=== PATIENT | female | born 1955 | race Caucasian/White ===

== ENCOUNTER 2020-08-01 17:30 | Outpatient (REF) | payer OTHER, SELFPAY | END 2020-08-01 17:31 | disposition home or self-care (01) | LOC: HO.LNP 17:30 | PROVIDERS: Visit Provider Hospitalist | DX: Z20.828 Contact with and (suspected) exposure to other viral communicable diseases (principal) | CPT/HCPCS: 87635 ==

== ENCOUNTER 2020-08-02 11:21 | Outpatient (REF) | payer OTHER, SELFPAY ==
[2020-08-02 11:49] LABS: COVID-19 Test Negative (Negative)
== END 2020-08-02 11:22 | disposition home or self-care (01) ==
LOC: HO.LAB 11:21
PROVIDERS: PCP Internal Medicine; Visit Provider Internal Medicine
DX: Z20.828 Contact with and (suspected) exposure to other viral communicable diseases (principal)
CPT/HCPCS: 87635

== ENCOUNTER 2020-08-31 09:02 | Inpatient (IN) | payer OTHER, SELFPAY ==
[2020-08-31 09:23] VITALS: BP 138/74; PULSE 91; RESP 16; TEMP 36.6; O2SAT 99; BMI 23.8
--- NOTE | 2020-08-31 09:28 | ED_ITS ---
HPI - General Adult General Chief complaint: General Medical Stated complaint: abnormal labs Time Seen by Provider: 08/31/20 09:20 Source: patient Mode of arrival: ambulatory Limitations: no limitations History of Present Illness HPI narrative: 65 y/o female with history of HTN, HLD, anxiety, depression who presents with abnormal BUN and creatinine that was done on outpatient blood work 2 days ago. She was instructed to stop taking her HCTZ and to come the ED. She has had intermittent nausea, vomiting and diarrhea over the last 2-3 weeks. She also saw her PCP on 08/01 with N/V/D and fatigue and she was tested for COVID which was negative. No sick contacts, no fever, chills, back pain, urinary symptoms, abd pain. She was eating and drinking normally the last 2 days but the 2 days prior to that she had another bout of nausea and diarrhea. Related Data Home Medications Medication Instructions Recorded Confirmed alprazolam 0.5 mg tablet 0.5 mg PO TID PRN 08/01/20 atorvastatin 80 mg tablet mg PO 08/01/20 bupropion HCl 150 mg 24 hr tablet, 150 mg PO DAILY 08/01/20 extended release estradiol 10 mcg vaginal tablet 10 mcg VAGINAL 2XW 08/01/20 flu vacc [id number] 6mos up(PF) ml IM 08/01/20 hydrochlorothiazide 12.5 mg tablet 12.5 mg PO DAILY 08/01/20 ibuprofen 800 mg tablet 800 mg PO TID 08/01/20 losartan 100 mg tablet 100 mg PO DAILY 08/01/20 metoprolol succinate 100 mg 100 mg PO DAILY 08/01/20 tablet,extended release 24 hr omeprazole 20 mg capsule,delayed mg PO 08/01/20 release sertraline 50 mg tablet 50 mg PO DAILY 08/01/20 Previous Rx's Medication Instructions Recorded ondansetron HCl [Zofran] 4 mg PO Q8H PRN #12 tab 08/31/20 Allergies Allergy/AdvReac Type Severity Reaction Status Date / Time acetaminophen [From PERCOCET] Allergy Intermediate ITCHING Verified 08/31/20 09:22 oxycodone [Percocet] Allergy Unknown itching, Verified 08/31/20 09:22 N/V From PERCOCET Allergy Intermediate ITCHING Uncoded 08/31/20 09:22 Review of Systems Review of Systems: Constitutional: No Fever, No Chills ENT/Mouth: No sore throat, No Rhinorrhea, No Swallowing Difficulty Eyes: No Eye Pain, No Swelling, No Redness Cardiovascular: No Chest Pain, No SOB, No Orthopnea, No Edema Respiratory: No Cough, No Sputum, No Wheezing, No dyspnea Gastrointestinal: + Nausea, + Vomiting, + Diarrhea, No abdominal Pain, No Hematochezia, No Melena Genitourinary: No Dysuria, No Urinary Frequency, No Hematuria Musculoskeletal: No joint pain, No Myalgias Skin: No Skin Lesions, No rash Neuro: No Weakness, No Numbness, No Dizziness, No Headache Psych: No Anxiety/Panic, No Depression Heme/Lymph: No Bruising, No Lymphadenopathy Endocrine: No Polyuria, No Polydipsia PMFSH Past Medical History Attestation statement: The following information was validated with the patient. Medical History (Updated 08/31/20 @ 09:57 by ALTAF Dorman) Anxiety High cholesterol HTN (hypertension) Migraine Social History Social History Advance Directives: No Advance Directives Information Provided: No Physical Exam Vital Signs: Vital Signs: Last Vital Signs Temp 98 F 08/31/20 09:23 Pulse 91 08/31/20 09:23 Resp 16 08/31/20 09:23 BP 138/74 08/31/20 09:23 Pulse Ox 99 08/31/20 09:23 Body Mass Index 23.8 Appearance: Alert. Oriented X3. No acute distress. Eyes: Pupils equal, round and reactive to light. ENT: Pharynx normal. Neck: Normal inspection. Neck supple. CVS: Normal heart rate and rhythm. Pulses normal. Respiratory: No respiratory distress. Breath sounds normal. Abdomen: Soft and nontender. +BS x4 Skin: Skin warm and dry. Normal skin color. Normal skin turgor. No rashes. Extremities: No lower extremity edema. Neuro: Oriented X 3. No motor deficit. No sensory deficit. Course Course Course Narrative: 65 you female presenting with ARYA found on outpatient blood work. BUN/Cr from 2 days ago were 37/3.2 with potassium 3.9. Baseline SCr 1.1 from earlier this year. ARYA etiology likely pre-renal given recent diarrhea, vomiting and decreased PO intake. Repeat labs and urine electrolytes ordered as well as IVF. She is currently feeling well and at her baseline health. Reevaluation(s) Reevaluation #1: Labs showing worsening renal function with SCr 5.28. Potassium normal. Also showing worsening anemia from her baseline. ?anemia of chronic disease. Her baseline Bun/Cr was from earlier this year. She states her urination has been normal, which is not frequent at her baseline. We spoke about admission for monitoring, IVF and evaluation by a Senior Professional Services Consultant. She agrees with. Contacted Hospitalist who accepts. Medical Decision Making MDM Narrative Medical decision making narrative: ARYA likely pre-renal given symptoms. cannot rule out intrinsic or extrensic causes. needs admission for further evaluation. urine lytes ordered. will need renal U/S to r/o obstruction as well. Lab Data Result diagrams: 08/31/20 09:36 08/31/20 09:36 Labs: Lab Results 08/31/20 08/31/20 08/31/20 Range/Units 09:36 09:36 09:36 WBC 7.9 (4.8-10.8) X10*3/uL RBC 2.78 L (4.20-5.50) X10*6/uL Hgb 9.2 L (12.0-16.0) g/dl Hct 28.3 L (37-47) % MCV 101.8 H (80-98) fL MCH 33.1 H (27.0-33.0) pg MCHC 32.5 (31.0-35.0) g/dl RDW 13.0 (11.0-16.0) % Plt Count 286 (160-400) X10*3/uL MPV 9.1 L (9.4-12.3) fL Immature Gran % (Auto) 0.4 (0.0-0.4) % Neut % (Auto) 75.5 H (45-73) % Lymph % (Auto) 13.9 L (20-40) % [place] % (Auto) 8.3 (2-11) % Eos % (Auto) 1.4 (0-4) % Baso % (Auto) 0.5 (0-2) % Lymph # (Auto) 1.1 L (1.2-4.9) X10*3/uL [place] # (Auto) 0.7 (0.1-1.2) X10*3/uL Eos # (Auto) 0.1 (0.0-0.4) X10*3/uL Baso # (Auto) 0.0 (0.0-0.2) X10*3/uL Abs Immat Gran (auto) 0.03 (0.00-0.03) X10*3/uL Absolute Neuts (auto) 6.0 (2.0-8.3) X10*3/uL Absolute Nucleated RBC 0.000 (0.0-0.012) X10*3/uL Nucleated RBC % (auto) 0.0 (0.0-0.2) /100WBC Sodium 129 L (135-145) mmol/L Potassium 3.7 (3.3-5.1) mmol/l Chloride 95 L (96-108) mmol/L Carbon Dioxide 20 L (22-29) mmol/L Anion Gap 18 (12-20) BUN 43 H (9-16) mg/dL Creatinine 5.28 H* (0.5-1.4) mg/dL Estim Creat Clear Calc 8.6 Estimated GFR 8 Random Glucose 96 (60-115) mg/dL Calcium 8.4 (8.4-10.2) mg/dL Phosphorus 5.7 H (2.7-4.5) mg/dL Magnesium 1.7 (1.6-2.6) mg/dL Total Bilirubin 0.4 (0.0-1.0) mg/dL Direct Bilirubin 0.2 (0.0-0.5) mg/dL AST 26 (5-31) U/L ALT 16 (0-31) U/L Alkaline Phosphatase 114 (39-117) U/L Total Protein 7.1 (6.5-8.0) g/dL Albumin 4.3 (3.5-5.0) g/dL Urine Color Urine Appearance Urine pH (5.0-8.0) Ur Specific [place] (1.005-1.025) Urine Protein (NEG-TRACE) MG/DL Urine Glucose (UA) (NEG) MG/DL Urine Ketones (NEG) MG/DL Urine Blood (NEG) Urine Nitrite (NEG) Ur Leukocyte Esterase (NEG) Urine RBC (0) /HPF Urine WBC (0-4) /HPF Ur Squamous Epith Cells /LPF Amorphous Sediment /LPF Urine Bacteria /LPF Granular Casts /LPF Ur Random Sodium mmol/L Urine Creatinine mg/dL 08/31/20 08/31/20 Range/Units 09:36 09:45 WBC (4.8-10.8) X10*3/uL RBC (4.20-5.50) X10*6/uL Hgb (12.0-16.0) g/dl Hct (37-47) % MCV (80-98) fL MCH (27.0-33.0) pg MCHC (31.0-35.0) g/dl RDW (11.0-16.0) % Plt Count (160-400) X10*3/uL MPV (9.4-12.3) fL Immature Gran % (Auto) (0.0-0.4) % Neut % (Auto) (45-73) % Lymph % (Auto) (20-40) % [place] % (Auto) (2-11) % Eos % (Auto) (0-4) % Baso % (Auto) (0-2) % Lymph # (Auto) (1.2-4.9) X10*3/uL [place] # (Auto) (0.1-1.2) X10*3/uL Eos # (Auto) (0.0-0.4) X10*3/uL Baso # (Auto) (0.0-0.2) X10*3/uL Abs Immat Gran (auto) (0.00-0.03) X10*3/uL Absolute Neuts (auto) (2.0-8.3) X10*3/uL Absolute Nucleated RBC (0.0-0.012) X10*3/uL Nucleated RBC % (auto) (0.0-0.2) /100WBC Sodium (135-145) mmol/L Potassium (3.3-5.1) mmol/l Chloride (96-108) mmol/L Carbon Dioxide (22-29) mmol/L Anion Gap (12-20) BUN (9-16) mg/dL Creatinine (0.5-1.4) mg/dL Estim Creat Clear Calc Estimated GFR Random Glucose (60-115) mg/dL Calcium (8.4-10.2) mg/dL Phosphorus (2.7-4.5) mg/dL Magnesium (1.6-2.6) mg/dL Total Bilirubin (0.0-1.0) mg/dL Direct Bilirubin (0.0-0.5) mg/dL AST (5-31) U/L ALT (0-31) U/L Alkaline Phosphatase (39-117) U/L Total Protein (6.5-8.0) g/dL Albumin (3.5-5.0) g/dL Urine Color STRAW Urine Appearance HAZY Urine pH 5.5 (5.0-8.0) Ur Specific [place] 1.010 (1.005-1.025) Urine Protein 1+ H (NEG-TRACE) MG/DL Urine Glucose (UA) NEG (NEG) MG/DL Urine Ketones NEG (NEG) MG/DL Urine Blood 2+ H (NEG) Urine Nitrite NEG (NEG) Ur Leukocyte Esterase NEG (NEG) Urine RBC 5-9 H (0) /HPF Urine WBC 1-4 (0-4) /HPF Ur Squamous Epith Cells 2+ /LPF Amorphous Sediment 3+ /LPF Urine Bacteria 1+ /LPF Granular Casts 5-9 /LPF Ur Random Sodium 21.0 mmol/L Urine Creatinine 41.19 mg/dL Discharge Plan Discharge Clinical Impression: ARYA (acute kidney injury), Acute dehydration Patient Disposition: Admitted As Inpatient
[2020-08-31 09:50] LABS: MANUAL DIFF FLAG NO
[2020-08-31 09:53] LABS: Glucose Urine UA NEG (NEG); Leukocyte Esterase Urine NEG (NEG); Nitrite Urine NEG (NEG); PH 5.5 (5.0-8.0); Urine Blood 2+ (NEG); Urine Ketones NEG (NEG); Urine Protein 1+ MG/DL (NEG-TRACE)
[2020-08-31 09:54] LABS: Appearance Urine HAZY; Color Urine STRAW
[2020-08-31 09:56] LABS: Basophils Percent Auto 0.5 % (0-2); Eosinophils Absolute Auto 0.1 X10*3/uL (0.0-0.4); Eosinophils Percent Auto 1.4 % (0-4); Hematocrit 28.3 % (37-47); Hemoglobin 9.2 g/dl (12.0-16.0); Imm Gran Abs Auto 0.03 X10*3/uL (0.00-0.03); Imm Gran Pct Auto 0.4 % (0.0-0.4); Lymphocytes Absolute Auto 1.1 X10*3/uL (1.2-4.9); Lymphocytes Percent Auto 13.9 % (20-40); Mean Corpuscular HGB Conc 32.5 g/dl (31.0-35.0); Mean Corpuscular Hemoglobin 33.1 pg (27.0-33.0); Mean Corpuscular Volume 101.8 fL (80-98); Mean Platelet Volume 9.1 fL (9.4-12.3); Monocytes Absolute Auto 0.7 X10*3/uL (0.1-1.2); Monocytes Percent Auto 8.3 % (2-11); Neutrophils Percent Auto 75.5 % (45-73); Platelet Count 286 X10*3/uL (160-400); Red Blood Count 2.78 X10*6/uL (4.20-5.50); White Blood Count 7.9 X10*3/uL (4.8-10.8)
[2020-08-31 10:01] LABS: Bacteria Urine 1+ /LPF; Squamous Epithelial Cell Urine 2+ /LPF
[2020-08-31 10:02] LABS: Amorphous Sediment Urine 3+ /LPF
[2020-08-31 10:19] LABS: Magnesium 1.7 mg/dL (1.6-2.6)
[2020-08-31 10:27] LABS: Alanine Aminotransferase 16 U/L (0-31); Albumin Level 4.3 g/dL (3.5-5.0); Alkaline Phosphatase 114 U/L (39-117); Anion Gap 18 (12-20); Aspartate Amino Transferase 26 U/L (5-31); Bilirubin Direct 0.2 mg/dL (0.0-0.5); Bilirubin Total 0.4 mg/dL (0.0-1.0); Blood Urea Nitrogen 43 mg/dL (9-16); Calcium 8.4 mg/dL (8.4-10.2); Carbon Dioxide 20 mmol/L (22-29); Chloride 95 mmol/L (96-108); Creatinine Clr Calc Pharmacy 8.6; Estimated Glomerular Filt Rate 8; Glucose Random 96 mg/dL (60-115); Phosphorus 5.7 mg/dL (2.7-4.5); Potassium 3.7 mmol/l (3.3-5.1); Sodium 129 mmol/L (135-145); Total Protein 7.1 g/dL (6.5-8.0)
[2020-08-31 10:55] LABS: Creatinine Urine 41.19 mg/dL
[2020-08-31] MEDS: 0.9 % Sodium Chloride 1,000 ML 999 ML IVCONT (11:13)
[2020-08-31 11:14] VITALS: BP 121/77; PULSE 93; O2SAT 98
[2020-08-31 12:02] LABS: COVID-19 Test Negative (Negative)
--- NOTE | 2020-08-31 14:28 | P.HPHOSP_ITS ---
History of Present Illness Date of Service: 08/31/20 Chief Complaint: Abnormal blood work A 65 years old lady with PMH of HTN, HLD, anxiety and depression who presents to the hospital as a referral from PCP office for abnormal blood work. The patient reports episodes of nausea and vomiting couple weeks ago that she did not recover completely from them as she was not eating very well or drinking plenty of water for the feeling of nausea that she had all the time. This feeling was associated with increase weakness and feeling fatigue. She went to see her primary on Saturday who did blood work and called her earlier today to come back to the hospital for acute kidney injury with creatinine worsening from baseline of 1 to 3 on Saturday. The patient kidney ultrasound done at [facility] yesterday negative for any acute obstruction or hydronephrosis. Repeated blood work in the emergency showed creatinine of 5.2. Admitted for further evaluation and treatment. [facility] Medical History (Updated 08/31/20 @ 09:57 by ALTAF Dorman) Anxiety High cholesterol HTN (hypertension) Migraine Social History Advance Directives: No Advance Directives Information Provided: No Meds Allergies Allergy/AdvReac Type Severity Reaction Status Date / Time acetaminophen [From PERCOCET] Allergy Intermediate ITCHING Verified 08/31/20 09:22 oxycodone [Percocet] Allergy Unknown itching, Verified 08/31/20 09:22 N/V From PERCOCET Allergy Intermediate ITCHING Uncoded 08/31/20 09:22 Home Medications Medication Instructions Recorded Confirmed Type alprazolam 0.5 mg tablet 0.5 mg PO TID PRN 08/01/20 08/31/20 History bupropion HCl 150 mg 24 hr tablet, 150 mg PO DAILY 08/01/20 08/31/20 History extended release estradiol 10 mcg vaginal tablet 10 mcg VAGINAL 2XW 08/01/20 08/31/20 History metoprolol succinate 100 mg 100 mg PO DAILY 08/01/20 08/31/20 History tablet,extended release 24 hr omeprazole 20 mg capsule,delayed 20 mg PO DAILY 08/01/20 08/31/20 History release butorphanol 1 spray INTRANASAL Q4H PRN 08/31/20 08/31/20 History rosuvastatin 40 mg PO DAILY 08/31/20 08/31/20 History Physical Exam Vital Signs and Narrative: Vital Signs: Last Vital Signs Temp 98 F 08/31/20 09:23 Pulse 93 08/31/20 11:14 Resp 16 08/31/20 09:23 BP 121/77 08/31/20 11:14 Pulse Ox 98 08/31/20 11:14 Body Mass Index 23.8 Results Labs CBC and Chem 7: 08/31/20 09:36 08/31/20 09:36 Labs: Laboratory Results - last 24 hr 08/31/20 08/31/20 08/31/20 09:36 09:36 09:36 MCV 101.8 H MCH 33.1 H MCHC 32.5 RDW 13.0 Plt Count 286 MPV 9.1 L Immature Gran % (Auto) 0.4 Neut % (Auto) 75.5 H Lymph % (Auto) 13.9 L [place] % (Auto) 8.3 Eos % (Auto) 1.4 Baso % (Auto) 0.5 Lymph # (Auto) 1.1 L [place] # (Auto) 0.7 Eos # (Auto) 0.1 Baso # (Auto) 0.0 Abs Immat Gran (auto) 0.03 Absolute Neuts (auto) 6.0 Absolute Nucleated RBC 0.000 Nucleated RBC % (auto) 0.0 Anion Gap 18 Estim Creat Clear Calc 8.6 Estimated GFR 8 Random Glucose 96 Calcium 8.4 Phosphorus 5.7 H Magnesium 1.7 Total Bilirubin 0.4 Direct Bilirubin 0.2 AST 26 ALT 16 Alkaline Phosphatase 114 Total Protein 7.1 Albumin 4.3 Urine Color Urine Appearance Urine pH Ur Specific [place] Urine Protein Urine Glucose (UA) Urine Ketones Urine Blood Urine Nitrite Ur Leukocyte Esterase Urine RBC Urine WBC Ur Squamous Epith Cells Amorphous Sediment Urine Bacteria Granular Casts Ur Random Sodium Urine Creatinine COVID-19 ([facility]IDIA) COVID-19 Clin Com 08/31/20 08/31/20 08/31/20 09:36 09:45 11:30 MCV MCH MCHC RDW Plt Count MPV Immature Gran % (Auto) Neut % (Auto) Lymph % (Auto) [place] % (Auto) Eos % (Auto) Baso % (Auto) Lymph # (Auto) [place] # (Auto) Eos # (Auto) Baso # (Auto) Abs Immat Gran (auto) Absolute Neuts (auto) Absolute Nucleated RBC Nucleated RBC % (auto) Anion Gap Estim Creat Clear Calc Estimated GFR Random Glucose Calcium Phosphorus Magnesium Total Bilirubin Direct Bilirubin AST ALT Alkaline Phosphatase Total Protein Albumin Urine Color STRAW Urine Appearance HAZY Urine pH 5.5 Ur Specific [place] 1.010 Urine Protein 1+ H Urine Glucose (UA) NEG Urine Ketones NEG Urine Blood 2+ H Urine Nitrite NEG Ur Leukocyte Esterase NEG Urine RBC 5-9 H Urine WBC 1-4 Ur Squamous Epith Cells 2+ Amorphous Sediment 3+ Urine Bacteria 1+ Granular Casts 5-9 Ur Random Sodium 21.0 Urine Creatinine 41.19 COVID-19 (ELIDIA) Negative COVID-19 Clin Com See Note Assessment and Plan (1) ARYA (acute kidney injury): Status: Acute (2) Acute dehydration: Status: Acute A 65 years old lady with PMH of HTN, HLD, anxiety and depression who presents to the hospital as a referral from PCP office for abnormal blood work. Acute kidney injury Seems to be related to dehydration status, decreased p.o. intake and medication usage Creatinine from baseline of 1 increased to 5.2 today BUN in 40s, suggestive of tubular injury Likely Patient on losartan, HCT, ibuprofen as needed Kidney ultrasound done in [facility] yesterday negative for any acute obstruction or hydronephrosis Hold nephrotoxic medications Send urine electrolytes Start gentle hydration Monitor intake and output To get Nephrology evaluation Acute Dehydration Secondary to nausea and vomiting Hydrate with IV fluid To use nausea medication as needed New Anemia Seems to be macrocytic with MCV of 101 To check iron stores, folic acid and thiamine To check occult blood No active source of bleeding identified but patient reports history of Esquivel's esophagus Hyponatremia sodium of 129, from dehydration To give IV fluid replacement Monitor BMP HTN Hold losartan, HCT continue metoprolol GERD Continue omeprazole DVT PPX Heparin
[2020-08-31] MEDS: 0.9 % Sodium Chloride 1,000 ML 100 ML IVCONT (14:42)
[2020-08-31 15:24] VITALS: BP 124/72; PULSE 100; RESP 18; TEMP 36.6; O2SAT 97
[2020-08-31] MEDS: Heparin Sodium,Porcine 5,000 UNIT/ML VIAL 5000 UNIT SUBCUT (16:50)
[2020-08-31 18:45] LABS: Anion Gap 19 (12-20); Blood Urea Nitrogen 42 mg/dL (9-16); Calcium 7.4 mg/dL (8.4-10.2); Carbon Dioxide 16 mmol/L (22-29); Chloride 101 mmol/L (96-108); Creatinine Clr Calc Pharmacy 8.3; Estimated Glomerular Filt Rate 8; Glucose Random 105 mg/dL (60-115); Potassium 3.7 mmol/l (3.3-5.1); Sodium 132 mmol/L (135-145)
[2020-08-31 19:26] VITALS: BP 116/73; PULSE 94; RESP 18; TEMP 36.3; O2SAT 97
--- NOTE | 2020-08-31 19:35 | P.CONNP_ITS ---
History of Present Illness Reason for Consult Consult date: 08/31/20 Reason for consult: ARYA Chief Complaint Chief complaint: acute kidney injury History of Present Illness Narrative: 65 y/o wF USOH until 1 wk ago when devloped GI sympotms w N/V and diahrea and decr PO intake. Seen by PCPand noted ARYA and had U/S at [facility] last night per PT whichwas negative for abnl. Admits to taking alleve for a few days last weak d/t muscle aches in neck area..better now. Noted decr UOP x2-3 days. BPmeds include cozaar and HCTZ ..stopped today No fever/chills No rash or myalgias No GH/dysuria No H/o kdiney probs No FHx of kidney probs PMH Anxiety High cholesterol HTN (hypertension) Migraine [facility] Past Medical History Medical History (Updated 08/31/20 @ 09:57 by ALTAF Dorman) Anxiety High cholesterol HTN (hypertension) Migraine Social History Social History Household Members: None Housing: House Do you presently have visiting nurse or other home services: No Use of substances other than those prescribed or required for medical reasons: No Have you been hit, kicked, punched, or otherwise hurt by someone within the past year? If so, by whom?: No Do you feel safe in your current relationship?: No Is there a partner from a previous relationship who is making you feel unsafe now?: No Are you made to feel afraid or neglected: No Advance Directives: No Advance Directives Information Provided: No Meds Allergies Allergy/AdvReac Type Severity Reaction Status Date / Time acetaminophen [From PERCOCET] Allergy Intermediate ITCHING Verified 08/31/20 09:22 oxycodone [Percocet] Allergy Unknown itching, Verified 08/31/20 09:22 N/V From PERCOCET Allergy Intermediate ITCHING Uncoded 08/31/20 09:22 Home Medications Medication Instructions Recorded Confirmed Type alprazolam 0.5 mg tablet 0.5 mg PO TID PRN 08/01/20 08/31/20 History bupropion HCl 150 mg 24 hr tablet, 150 mg PO DAILY 08/01/20 08/31/20 History extended release estradiol 10 mcg vaginal tablet 10 mcg VAGINAL 2XW 08/01/20 08/31/20 History metoprolol succinate 100 mg 100 mg PO DAILY 08/01/20 08/31/20 History tablet,extended release 24 hr omeprazole 20 mg capsule,delayed 20 mg PO DAILY 08/01/20 08/31/20 History release butorphanol 1 spray INTRANASAL Q4H PRN 08/31/20 08/31/20 History rosuvastatin 40 mg PO DAILY 08/31/20 08/31/20 History Physical Exam Vital Signs: Last Vital Signs Temp 97.4 F 08/31/20 19:26 Pulse 94 08/31/20 19:26 Resp 18 08/31/20 19:26 BP 116/73 08/31/20 19:26 Pulse Ox 97 08/31/20 19:26 Body Mass Index 23.8 Results Lab Results Result Diagrams: 08/31/20 09:36 08/31/20 17:50 Lab results: Chemistry 08/31/20 08/31/20 09:36 17:50 Sodium 129 L 132 L Potassium 3.7 3.7 Carbon Dioxide 20 L 16 L BUN 43 H 42 H Creatinine 5.28 H* 5.43 H* Calcium 8.4 7.4 L D Phosphorus 5.7 H Hematology 08/31/20 09:36 WBC 7.9 Hgb 9.2 L Plt Count 286 Urinalysis 08/31/20 09:36 Urine Color STRAW Urine Appearance HAZY Urine pH 5.5 Ur Specific [place] 1.010 Urine Protein 1+ H Urine Glucose (UA) NEG Urine Ketones NEG Urine Blood 2+ H Urine Nitrite NEG Ur Leukocyte Esterase NEG Urine RBC 5-9 H Urine WBC 1-4 Ur Squamous Epith Cells 2+ Urine Studies 08/31/20 09:45 Urine Creatinine 41.19 Laboratory Tests 09/28/19 08/31/20 08/31/20 10:51 09:36 17:50 Creatinine 0.99 5.28 H* 5.43 H* Assessment and Plan (1) ARYA (acute kidney injury): Status: Acute (2) Acute dehydration: Status: Acute 1. ARYA: hsitory suggestive of pre-renal/dehydarion BUT lack of high BUn/Cr ratio, abnl UA ( prt and bld) and FEN a > 1% raises some question as does lack of decr SCr after IVF......note that .ARB and NSAID may interfere with auto- regualtion and play a contributing role in renal hypoperfsuion and delay response to IVF Nonetheless need to broaden our DDx AGN/RPGN AIN ( NSAIDS and PPI have been assoc) ATN without obvious precipitant Dysproteinemia: eg Myeloma and thus will proceed with sero studies and if SCr does not respond to IVF may need kidney Bx 2. Ques CKD component...last Scr 0.99 from [facility]...[facility] over past 1o months ? 3. Anemia: w/u in progress 4. NAGMA: d/t diarrhea and ARYA 5. HypoNa: d/t AKIand inability to handle F[place] REC: agree with IVf and proceed with sero/urine studies and depending on results may need kidney Bx; am heparin on hold as well as NPO after midnight incase need to proceed with kidney Bx will follow daryl with med team
[2020-08-31] MEDS: 0.9 % Sodium Chloride Flush 3 ML SYRINGE IVFLUSH (20:35)
[2020-08-31 20:42] LABS: Phosphorus 5.1 mg/dL (2.7-4.5)
[2020-08-31 20:45] LABS: Iron 34 mcg/dL (30-160); Percent Iron Saturation 14 % (15-50); Total Iron Binding Capacity 241 mcg/dL (228-428); Unsaturated Iron Binding 207 ug/dL
[2020-08-31 23:48] VITALS: BP 143/88; PULSE 92; RESP 16; TEMP 35.9; O2SAT 99
[2020-09-01] VITALS (8 sets, daily range): BP systolic 111–147; BP diastolic 67–89; PULSE 82–95; RESP 16–18; TEMP 36.1–36.7; O2SAT 96–99
[2020-09-01] MEDS: 0.9 % Sodium Chloride 1,000 ML 100 ML IVCONT ×3 (01:44→15:31)
[2020-09-01 02:26] LABS: Creatinine Urine 29.49 mg/dL; Total Protein Urine Random 21 mg/dL (<12)
--- NOTE | 2020-09-01 06:18 | PC.NURSE ---
Md called for pt updated. Md was worried that pt was retaining urine. Md asked for bladder scan. Scan showed only 151 ml in bladder. No straight cath was needed
[2020-09-01 06:59] LABS: MANUAL DIFF FLAG NO
[2020-09-01 07:11] LABS: INTERNATIONAL NORM RATIO 0.9 (0.9-1.1); Prothrombin Time 10.6 SEC (10.8-13.0)
[2020-09-01] MEDS: Omeprazole 20 MG CAPSULE.DR PO (07:28)
[2020-09-01] MEDS: buPROPion HCl XL 150 MG TAB.ER.24H PO (07:28)
[2020-09-01] MEDS: 0.9 % Sodium Chloride Flush 3 ML SYRINGE IVFLUSH (07:28)
[2020-09-01 07:33] LABS: Basophils Percent Auto 0.5 % (0-2); Eosinophils Absolute Auto 0.1 X10*3/uL (0.0-0.4); Eosinophils Percent Auto 1.6 % (0-4); Hematocrit 21.4 % (37-47); Imm Gran Abs Auto 0.03 X10*3/uL (0.00-0.03); Imm Gran Pct Auto 0.5 % (0.0-0.4); Lymphocytes Absolute Auto 0.9 X10*3/uL (1.2-4.9); Lymphocytes Percent Auto 15.9 % (20-40); Mean Corpuscular HGB Conc 33.6 g/dl (31.0-35.0); Mean Corpuscular Hemoglobin 33.8 pg (27.0-33.0); Mean Corpuscular Volume 100.5 fL (80-98); Mean Platelet Volume 9.4 fL (9.4-12.3); Monocytes Absolute Auto 0.6 X10*3/uL (0.1-1.2); Monocytes Percent Auto 11.2 % (2-11); Neutrophils Absolute Auto 3.9 X10*3/uL (2.0-8.3); Neutrophils Percent Auto 70.3 % (45-73); Platelet Count 237 X10*3/uL (160-400); Red Blood Count 2.13 X10*6/uL (4.20-5.50); Red Cell Distribution Width 12.8 % (11.0-16.0); White Blood Count 5.5 X10*3/uL (4.8-10.8)
[2020-09-01 07:42] LABS: Hemoglobin 7.2 g/dl (12.0-16.0)
[2020-09-01 07:52] LABS: EOS Counted 0 CELLS; EOS QC POS YES; EOS Stain Quality OK YES; WBC, Counted 0 CELLS
[2020-09-01 08:10] LABS: Anion Gap 16 (12-20); Blood Urea Nitrogen 42 mg/dL (9-16); Calcium 7.2 mg/dL (8.4-10.2); Carbon Dioxide 16 mmol/L (22-29); Chloride 105 mmol/L (96-108); Glucose Random 81 mg/dL (60-115); Iron 52 mcg/dL (30-160); Percent Iron Saturation 22 % (15-50); Phosphorus 5.4 mg/dL (2.7-4.5); Potassium 3.6 mmol/l (3.3-5.1); Sodium 133 mmol/L (135-145); Total Iron Binding Capacity 235 mcg/dL (228-428); Unsaturated Iron Binding 183 ug/dL
[2020-09-01] MEDS: Metoprolol Succinate ER 100 MG TAB.ER.24H 25 MG PO (08:15)
[2020-09-01 08:46] LABS: Creatinine Clr Calc Pharmacy 8.8; Estimated Glomerular Filt Rate 8
[2020-09-01 08:56] LABS: HBS Num1 2.45 mIU/mL (0-7.99); HBc Num1 0.09 S/CO (0.00-0.79); HBsAGNum1 0.24 S/CO (0.00-0.99); Hepatitis B Core Antibody Nonreactive (Nonreactive); Hepatitis B Surface Antigen Negative (Negative); ~HepC Num1 0.05 S/CO (0.00-0.79); ~Hepatitis B Surface Antibody NONREACTIVE (Nonreactive); ~Hepatitis C Antibody Nonreactive (Nonreactive)
--- NOTE | 2020-09-01 09:50 | MHC.CM.PN ---
PATIENT IS FULLY INDEPENDENT WITH ALL ADLS. NO DME OR VNA SERVICES SHE WORKS AT [facility] IN [place]. PATIENT IS HOPING TO BE ABLE TO RETURN HOME WITH NO NEED FOR SERVICES OR PROCEDURES. CASE MANAGEMENT FOLLOWING.
[2020-09-01 10:43] LABS: Folate 14.4 ng/mL (> or = 4.0); Vitamin B12 336 pg/mL (200-900)
--- NOTE | 2020-09-01 11:28 | PM.PNNEP ---
Subjective Subjective Principal diagnosis: ARYA Interval history: Seen and examiend. Overall feeling better with just minimal diarrhea and no N/V Physical Exam Vital Signs: Vital Signs: Last Vital Signs Temp 97.0 F 09/01/20 07:38 Pulse 95 09/01/20 07:38 Resp 17 09/01/20 07:38 BP 147/89 H 09/01/20 07:38 Pulse Ox 96 09/01/20 07:38 Body Mass Index 23.8 Const: General: cooperative and comfortable Neck: Neck: Yes no JVD Chest: Chest palpation & inspection: normal inspection of the chest Resp: Effort & Inspection: normal respiratory effort Auscultation: clear to auscultation bilaterally Cardio: Rate: regular rate Extrem: General: Yes no pedal edema Assessment & Plan Assessment and plan (1) ARYA (acute kidney injury): Status: Acute (2) Acute dehydration: Status: Acute Assessment and Plan: 1. ARYA: hsitory suggestive of pre-renal/dehydarion BUT clearly that is not the case based on lack of rapid renal recovery w IVF and lab studies done thus far Urine sediment by me revealed granular casts and NO DEFINITIVE RBC casts So the DDx is as follows ATN: d/t combination of renal hypoperfsuion from dehydartiona nd BIANCA/diiuretic/ NSAIDs use all contirbuting to ischemic ATN AGN/RPGN: sero in nthe works; despite absence of rbc casts this does NOT this out AIN ( NSAIDS and PPI have been assoc) Dysproteinemia: eg Myeloma..naveed given anemia 2. Ques CKD component...last Scr 0.99 from [facility] over past 1o months ? 3. Anemia: drop in Hb with IVF..dilutional; appears to have signif chronic anemia that has dveloped over the past 10 monhts; Fe def and ques epo def; but underlying myeolma still in ? w/u in progress 4. NAGMA: d/t diarrhea and ARYA 5. HypoNa: imporved d/t AKIand inability to handle [place] 6. HTN REC: cont IVF; type and cross and xfuse 1 unit today in prep of possible kidney Bx tomorrow; make NPO again after midnight; hold heprin in am; check sero; guiac stools IV Fe x 1; PO NaHCO3; Procardia 30 qd ( I ordered ) will follow daryl with med team Time Spent With Patient Time: Total time spent is greater than 50% in coordination of care (as documented) at patient's floor/unit and/or counseling patient: Procedures Abscess I/D Date of Service: 09/01/20
--- NOTE | 2020-09-01 11:53 | MHC.CM.PN ---
PER PHYSICIAN ROUNDS, PATIENT WILL NEED A RENAL BIOPSY, HER RENAL FUNCTIONS ARE WORSENING. ATTEMPTS ARE BEING MADE FOR A SUNDAY 09/02 BIOPSY. IF NOT, PATIENT WILL BE SCHEDULED FOR WEDNESDAY 09/05. PATIENT AWARE OF PLAN.
[2020-09-01] MEDS: Sodium Ferric Gluconat/Sucrose 125 MG in 0.9 % Sodium Chloride 100 ML 100 MG IV (12:34)
[2020-09-01] MEDS: Sodium Bicarbonate 650 MG TABLET PO ×2 (12:35→21:33)
[2020-09-01] MEDS: NIFEdipine ER 30 MG TAB.ER.24 PO (12:35)
--- NOTE | 2020-09-01 12:54 | P.PNIM_ITS ---
Subjective Subjective Date of Service: 09/01/20 Interval History: Patient offers no acute complaints of pain, had 3 small bowel movement this morning, no abdominal pain, no nausea, no vomiting. Review of Systems General no headache, no dizziness , no fever chills. CVS no chest pain, no palpitation. Respiratory no cough,no respiratory distress. Gastrointestinal no nausea, no vomiting, no abdominal pain had 3 small loose stool. Physical Exam Vital Signs: Vital Signs: Last Vital Signs Temp 97.6 F 09/01/20 11:38 Pulse 82 09/01/20 11:38 Resp 18 09/01/20 11:38 BP 145/73 H 09/01/20 11:38 Pulse Ox 99 09/01/20 11:38 Body Mass Index 23.8 General patient resting comfortably,no acute distress. Neck supple, no JVD. CVS regular rate rhythm, Respiratory lungs clear to auscultation, no respiratory distress Gastrointestinal abdomen soft, nontender, bowel sounds audible Extremities no clubbing cyanosis or edema. Neuro nonfocal Skin no rash Objective Data Current Medications Generic Name Dose Route Start Last Admin Trade Name Freq PRN Reason Stop Dose Admin Acetaminophen 650 mg 08/31/20 14:12 Acetaminophen 325 Mg Tablet PO Q6H PRN Pain, Mild (Pain Scale 1-3) Alprazolam 0.5 mg 08/31/20 14:38 Alprazolam 0.5 Mg Tablet PO TID PRN Anxiety Bupropion HCl 150 mg 09/01/20 09:00 09/01/20 07:28 Bupropion Hcl Xl 150 Mg Tab.Er.24h PO 150 mg DAILY JOSSELYN Administration Sodium Chloride 1,000 mls @ 100 mls/hr 08/31/20 14:12 09/01/20 05:11 Ns IVCONT 100 mls/hr .Q10H JOSSELYN Administration Ferric Sodium Gluconate 110 mls @ 100 mls/hr 09/01/20 11:52 09/01/20 12:34 Complex 125 mg/ Sodium IV 09/01/20 12:57 100 mls/hr Chloride ONCE ONE Administration Metoprolol Succinate 25 mg 09/01/20 09:00 09/01/20 08:15 Metoprolol Succinate Er 100 Mg Tab.Er.24h PO 25 mg DAILY JOSSELYN Administration Protocol Nifedipine 30 mg 09/01/20 09:00 09/01/20 12:35 Nifedipine Er 30 Mg Tab.Er.24 PO 30 mg DAILY JOSSELYN Administration Protocol Omeprazole 20 mg 09/01/20 09:00 09/01/20 07:28 Omeprazole 20 Mg Capsule. PO 20 mg DAILY JOSSELYN Administration Ondansetron HCl 4 mg 08/31/20 14:12 Ondansetron Hcl 4 Mg/2 Ml Vial IVPUSH Q8H PRN Nausea and Vomiting Sodium Bicarbonate 650 mg 09/01/20 11:56 09/01/20 12:35 Sodium Bicarbonate 650 Mg Tablet PO 650 mg TID JOSSELYN Administration Sodium Chloride 3 ml 08/31/20 16:00 09/01/20 07:28 0.9 % Sodium Chloride Flush 3 Ml Syringe IVFLUSH 3 ml QSHIFT JOSSELYN Administration Labs CBC & Chem 7: 09/01/20 06:22 09/01/20 06:22 Assessment and Plan (1) ARYA (acute kidney injury): Status: Acute Assessment and Plan: 65 years old lady with PMH of HTN, HLD, anxiety and depression who presents to the hospital as a referral from PCP office for abnormal blood work. Acute kidney injury With non-anion gap metabolic acidosis, hyperphosphatemia patient's symptoms of nausea,vomitting has significantly improved, patient treated with IV fluids but creatinine remains elevated raising concern for ATN, acute glomerulonephritis, acute interstitial nephritis, and possibility of multiple myeloma with significant anemia, creatinine 0.99 1 year ago, losartan, HCT, and ibuprofen discontinued,Kidney ultrasound done at [facility] 08/30 negative for any acute obstruction or hydronephrosis case discussed with Dr. Carter, he ordered further testing and is planning on renal biopsy therefore will keep patient NPO for breakfast ,urine sediment showed granular casts and no definite RBC Cast. will follow renal function closely. Anemia hematocrit dropped further, B12 and folate within normal range, low iron saturation question anemia related to kidney disease, case discussed with Nephrology and they ordered IV iron will order 1 unit of packed RBC follow hematocrit and stool guaiac,No active bleeding noted. Follow CBC. Hyponatremia sodium improved from 129 to 133 Monitor BMP HTN Hold losartan, HCTZ, due to low blood pressure will also reduce dose of metoprolol to 25 mg daily from home dose of 100 mg daily GERD Continue omeprazole DVT PPX will DC heparin since renal biopsies planned will place patient on compression boots and recommend early ambulation.
[2020-09-01 17:54] LABS: Urea, Random Urine 161 mg/dL
[2020-09-02] VITALS (14 sets, daily range): BP systolic 98–128; BP diastolic 58–76; PULSE 77–94; RESP 16–20; TEMP 36.1–36.9; O2SAT 96–98
--- NOTE | 2020-09-02 | CT_ITS ---
PROCEDURE: CT GUIDED BIOPSY, KIDNEY CLINICAL INFORMATION: Renal failure COMPARISON: Previous ultrasound of the kidneys 08/30/[address] of the abdomen and pelvis September 2019 TECHNIQUE: Procedure and risks and benefits including bleeding, infection and injury to the kidneys was discussed with the patient and informed consent was obtained. Patient was positioned in the prone position. Limited axial images through the kidneys were performed. The right flank was prepped and draped in the usual sterile fashion. The skin and soft tissues were anesthetized with 1% lidocaine plain. Using CT guidance and a coaxial system, access to the lower pole of the right kidney was obtained. 4 20-gauge core biopsies were obtained. There is no complication. Patient received Versed 1.5 mg and fentanyl 75 mcg intravenously during the procedure. Total sedation time was [address] examination was performed using dose optimization techniques as appropriate, variously including the following: *Automated exposure control *Adjustment of mA and/or kV according to patient size (this includes techniques or standardized protocols for targeted exams where dose is matched to indication/reason for exam; i.e. extremities or head) *Use of iterative reconstruction technique DLP: 145 mGy-cm FINDINGS: The kidneys are normal appearing. No renal stone, mass or hydronephrosis is seen. No evidence of a hematoma is seen post procedure. CT/CT biopsy renal RT IMPRESSION: CT-guided right renal biopsy.
[2020-09-02 06:54] LABS: MANUAL DIFF FLAG NO
[2020-09-02 07:02] LABS: Basophils Absolute Auto 0.1 X10*3/uL (0.0-0.2); Basophils Percent Auto 0.8 % (0-2); Eosinophils Absolute Auto 0.1 X10*3/uL (0.0-0.4); Eosinophils Percent Auto 1.5 % (0-4); Hematocrit 27.8 % (37-47); Hemoglobin 9.3 g/dl (12.0-16.0); Imm Gran Abs Auto 0.03 X10*3/uL (0.00-0.03); Imm Gran Pct Auto 0.5 % (0.0-0.4); Mean Corpuscular HGB Conc 33.5 g/dl (31.0-35.0); Mean Corpuscular Hemoglobin 32.3 pg (27.0-33.0); Mean Corpuscular Volume 96.5 fL (80-98); Mean Platelet Volume 9.1 fL (9.4-12.3); Monocytes Absolute Auto 0.7 X10*3/uL (0.1-1.2); Monocytes Percent Auto 11.5 % (2-11); Neutrophils Absolute Auto 4.1 X10*3/uL (2.0-8.3); Neutrophils Percent Auto 69.7 % (45-73); Platelet Count 233 X10*3/uL (160-400); Red Blood Count 2.88 X10*6/uL (4.20-5.50); Red Cell Distribution Width 13.8 % (11.0-16.0); White Blood Count 5.9 X10*3/uL (4.8-10.8)
[2020-09-02 08:09] LABS: Anion Gap 17 (12-20); Blood Urea Nitrogen 36 mg/dL (9-16); Calcium 7.6 mg/dL (8.4-10.2); Carbon Dioxide 17 mmol/L (22-29); Chloride 110 mmol/L (96-108); Glucose Random 79 mg/dL (60-115); Potassium 3.6 mmol/l (3.3-5.1); Sodium 140 mmol/L (135-145)
[2020-09-02 08:16] LABS: Creatinine Clr Calc Pharmacy 8.8; Estimated Glomerular Filt Rate 8
[2020-09-02] MEDS: Acetaminophen 325 MG TABLET 650 MG PO ×2 (08:54→15:40)
[2020-09-02] MEDS: Omeprazole 20 MG CAPSULE.DR PO (08:54)
[2020-09-02] MEDS: buPROPion HCl XL 150 MG TAB.ER.24H PO (08:55)
[2020-09-02] MEDS: Sodium Bicarbonate 650 MG TABLET PO ×3 (08:55→20:46)
--- NOTE | 2020-09-02 09:46 | P.PNIM_ITS ---
Subjective Subjective Date of Service: 09/02/20 Interval History: complaining of mild headache, patient is npo for scheduled renal biopsy, no acute issues overnight, hematocrit improved after 1 unit of packed RBC, no dizziness Review of Systems General c/o headache, no dizziness ,no fever chills. CVS no chest pain, no palpitation. Respiratory no cough, no shortness of breath Gastrointestinal no nausea, no vomiting, no abdominal pain Physical Exam Vital Signs: Vital Signs: Last Vital Signs Temp 97.0 F 09/02/20 08:00 Pulse 84 09/02/20 08:00 Resp 18 09/02/20 08:00 BP 105/58 L 09/02/20 08:00 Pulse Ox 97 09/02/20 08:00 Body Mass Index 23.8 General patient resting comfortably,no acute distress. Neck supple, no JVD. CVS regular rate rhythm, Respiratory lungs clear to auscultation, no respiratory distress Gastrointestinal abdomen soft, nontender, bowel sounds audible Extremities no clubbing cyanosis or edema. Neuro nonfocal Skin no rash Objective Data Current Medications Generic Name Dose Route Start Last Admin Trade Name Freq PRN Reason Stop Dose Admin Acetaminophen 650 mg 08/31/20 14:12 09/02/20 08:54 Acetaminophen 325 Mg Tablet PO 650 mg Q6H PRN Administration Pain, Mild (Pain Scale 1-3) Alprazolam 0.5 mg 08/31/20 14:38 Alprazolam 0.5 Mg Tablet PO TID PRN Anxiety Bupropion HCl 150 mg 09/01/20 09:00 09/02/20 08:55 Bupropion Hcl Xl 150 Mg Tab.Er.24h PO 150 mg DAILY JOSSELYN Administration Sodium Chloride 1,000 mls @ 50 mls/hr 08/31/20 14:12 09/02/20 00:56 Ns IVCONT Not Given .Q20H JOSSELYN Metoprolol Succinate 25 mg 09/01/20 09:00 09/01/20 08:15 Metoprolol Succinate Er 100 Mg Tab.Er.24h PO 25 mg DAILY JOSSELYN Administration Protocol Nifedipine 30 mg 09/01/20 09:00 09/01/20 12:35 Nifedipine Er 30 Mg Tab.Er.24 PO 30 mg DAILY JOSSELYN Administration Protocol Omeprazole 20 mg 09/01/20 09:00 09/02/20 08:54 Omeprazole 20 Mg Capsule.Dr PO 20 mg DAILY JOSSELYN Administration Ondansetron HCl 4 mg 08/31/20 14:12 Ondansetron Hcl 4 Mg/2 Ml Vial IVPUSH Q8H PRN Nausea and Vomiting Sodium Bicarbonate 650 mg 09/01/20 11:56 09/02/20 08:55 Sodium Bicarbonate 650 Mg Tablet PO 650 mg TID JOSSELYN Administration Sodium Chloride 3 ml 08/31/20 16:00 09/02/20 00:56 0.9 % Sodium Chloride Flush 3 Ml Syringe IVFLUSH Not Given QSHIFT [facility] Labs CBC & Chem 7: 09/02/20 06:40 09/02/20 06:40 Assessment and Plan (1) ARYA (acute kidney injury): Status: Acute Assessment and Plan: 65 years old lady with PMH of HTN, HLD, anxiety and depression who presents to the hospital as a referral from PCP office for abnormal blood work. Acute kidney injury With non-anion gap metabolic acidosis, hyperphosphatemia patient clinically feels better no further bout of nausea vomiting and diarrhea, tolerating by mouth well, borderline low blood pressure this a.m., creatinine remains around 5.2, persistent mild acidosis, therefore case discussed with Dr. Carter he recommend renal biopsy that has been scheduled for 10:00 a.m. differential diagnosis ATN, acute glomerulonephritis, acute interstitial nephritis, and possibility of multiple myeloma with significant anemia, creatinine 0.99 1 year ago, losartan, HCT, and ibuprofen discontinued,Kidney ultrasound done at [facility] 08/30 negative for any acute obstruction or hydronephrosis, urine sediment showed granular casts 10 no definite RBC cast will follow renal function avoid nephrotoxin continue IV fluid 50 mL/hours, will give DDAVP prior to procedure. Anemia hematocrit Improved after when unit of packed RBC, B12 and folate within no rmal range, low iron saturation question anemia related to kidney disease, no active bleeding. Hyponatremia sodium improved from 129 to 133 to 140 this a.m. Monitor BMP HTN BP borderline low, will continue to hold losartan, and HCTZ, due to low blood pressure dose of metoprolol has been lowered to 25 mg daily from home dose of 100 mg daily. Will DC Procardia xl GERD Continue omeprazole DVT PPX compression boots and recommend early ambulation.
[2020-09-02] MEDS: Metoprolol Succinate ER 100 MG TAB.ER.24H 25 MG PO (09:47)
[2020-09-02] MEDS: ALPRAZolam 0.5 MG TABLET PO (09:48)
--- NOTE | 2020-09-02 11:07 | HO.RADPN ---
RADIOLOGY Narrative Narrative: Ct guided core biopsy lower pole right kidney. 4 18g core biospies obtained using coaxial system. No complication.
[2020-09-02 11:36] LABS: Complement C3 122 mg/dL (83-193)
[2020-09-02 12:02] LABS: Myeloperoxidase Antibody <1.0 AI; Proteinase 3 PR3 Antibodies <1.0 AI
--- NOTE | 2020-09-02 13:01 | MHC.CM.PN ---
NURSE VEGETABLE HANDLER NOTE ELECTRONIC MEDICAL RECORD REVIEWED ALONG WITH CASE DISCUSSED ON MULTIPLE DISCIPLAINRY ROUNDS, MET WITH PATIENT SHE IS S/P CT CORE RENAL BIOPSY , PENDING PATHOLOYGY RESULTS , PLAN CONTINUE FOLLOWING ALL LABS ,ON IV FLUIDS, MONITORING HGB/HCT IMPROVED WITH PACKED RED BLOOD CELL TRANSFUSION AND MONITORING BLOOD PRESSURE VEGETABLE HANDLER TO CONTINUE TO FOLLOW FOR ANY CHANGES IN DISCHARGE PLAN NEEDS. DISCHRGE PLAN ANTICIPATE HOME NO SERVICES PCP FOLLOW UP AND RENAL PHYSICIAN FOLLOW UP
[2020-09-02 14:47] LABS: Anti Nuclear Antibody Screen NEGATIVE (NEGATIVE)
[2020-09-02] MEDS: 0.9 % Sodium Chloride Flush 3 ML SYRINGE IVFLUSH ×2 (15:32→23:57)
--- NOTE | 2020-09-02 16:35 | PM.PNNEP ---
Subjective Subjective Principal diagnosis: ARYA Interval history: Seen and examiend. Events noted S/P kidney Bx this am..tolerated well No pain Physical Exam Vital Signs: Vital Signs: Last Vital Signs Temp 97.5 F 09/02/20 16:00 Pulse 84 09/02/20 16:00 Resp 17 09/02/20 16:00 BP 112/67 09/02/20 16:00 Pulse Ox 97 09/02/20 16:00 Body Mass Index 23.8 Const: General: cooperative and comfortable Neck: Neck: Yes no JVD Chest: Chest palpation & inspection: normal inspection of the chest Resp: Effort & Inspection: normal respiratory effort Auscultation: clear to auscultation bilaterally Cardio: Rate: regular rate Extrem: General: Yes no pedal edema Assessment & Plan Assessment and plan (1) ARYA (acute kidney injury): Status: Acute (2) Acute dehydration: Status: Acute Assessment and Plan: 1. ARYA: hsitory suggestive of pre-renal/dehydarion BUT clearly that is not the case based on lack of rapid renal recovery w IVF and lab studies done thus far Urine sediment by me revealed granular casts and NO DEFINITIVE RBC casts So the DDx is as follows ATN: d/t combination of renal hypoperfsuion from dehydartiona nd BIANCA/diiuretic/ NSAIDs use all contirbuting to ischemic ATN AGN/RPGN: sero in nthe works; despite absence of rbc casts this does NOT this out AIN ( NSAIDS and PPI have been assoc) Dysproteinemia: eg Myeloma..naveed given anemia 2. Ques CKD component...last Scr 0.99 from Oct 2019...ques [facility] over past 1o months ? 3. Anemia: incr Hb after xfusion yesterday appears to have signif chronic anemia that has dveloped over the past 10 monhts; Fe def and ques epo def; but underlying myeolma still in ? w/u in progress 4. NAGMA: slt improved with po NaHCO3; d/t diarrhea and ARYA REC: check Hb this PM to makes sure no signif bleed from Bx; if SCr remains > 5.0 in am then will pulse with steroids 500 mg x 3 days for ques of RPGN vs AIN..... although ATN still possible its hard to find a direct preciptant of the ATN event; prilosec d/c'd ( she has been on it for sev years for [facility] and will need to go back on once we r/o AIN on Bx) if SCr less than 4.5 in am and clinically stable then d/c home wth f/u with me on and labs on Saturday ( prelim kidney Bx results should be back by Saturday pm). Time Spent With Patient Time: Total time spent is greater than 50% in coordination of care (as documented) at patient's floor/unit and/or counseling patient: Procedures Abscess I/D Date of Service: 09/02/20
[2020-09-02 19:01] LABS: Hematocrit 25.4 % (37-47); Hemoglobin 8.6 g/dl (12.0-16.0); Mean Corpuscular HGB Conc 33.9 g/dl (31.0-35.0); Mean Corpuscular Hemoglobin 33.2 pg (27.0-33.0); Mean Corpuscular Volume 98.1 fL (80-98); Platelet Count 220 X10*3/uL (160-400); Red Blood Count 2.59 X10*6/uL (4.20-5.50); Red Cell Distribution Width 14.4 % (11.0-16.0); White Blood Count 5.9 X10*3/uL (4.8-10.8)
[2020-09-02 22:46] LABS: Anion Gap 15 (12-20); Carbon Dioxide 19 mmol/L (22-29); Chloride 108 mmol/L (96-108); Potassium 3.3 mmol/l (3.3-5.1); Sodium 139 mmol/L (135-145)
[2020-09-03 03:43] VITALS: BP 131/82; PULSE 79; RESP 14; TEMP 36.3; O2SAT 97
[2020-09-03 07:41] VITALS: BP 140/84; PULSE 78; RESP 18; TEMP 36.7; O2SAT 99
[2020-09-03 07:50] LABS: MANUAL DIFF FLAG NO
[2020-09-03 07:56] LABS: Basophils Absolute Auto 0.1 X10*3/uL (0.0-0.2); Basophils Percent Auto 0.8 % (0-2); Eosinophils Absolute Auto 0.1 X10*3/uL (0.0-0.4); Eosinophils Percent Auto 1.5 % (0-4); Hematocrit 25.7 % (37-47); Hemoglobin 8.6 g/dl (12.0-16.0); Imm Gran Abs Auto 0.03 X10*3/uL (0.00-0.03); Imm Gran Pct Auto 0.5 % (0.0-0.4); Lymphocytes Percent Auto 14.9 % (20-40); Mean Corpuscular HGB Conc 33.5 g/dl (31.0-35.0); Mean Corpuscular Hemoglobin 32.7 pg (27.0-33.0); Mean Corpuscular Volume 97.7 fL (80-98); Mean Platelet Volume 9.3 fL (9.4-12.3); Monocytes Absolute Auto 0.6 X10*3/uL (0.1-1.2); Monocytes Percent Auto 9.7 % (2-11); Neutrophils Absolute Auto 4.8 X10*3/uL (2.0-8.3); Neutrophils Percent Auto 72.6 % (45-73); Platelet Count 229 X10*3/uL (160-400); Red Blood Count 2.63 X10*6/uL (4.20-5.50); Red Cell Distribution Width 14.3 % (11.0-16.0); White Blood Count 6.6 X10*3/uL (4.8-10.8)
[2020-09-03 08:39] LABS: Anion Gap 15 (12-20); Blood Urea Nitrogen 37 mg/dL (9-16); Calcium 7.5 mg/dL (8.4-10.2); Carbon Dioxide 20 mmol/L (22-29); Chloride 106 mmol/L (96-108); Creatinine Clr Calc Pharmacy 11.1; Estimated Glomerular Filt Rate 11; Glucose Random 84 mg/dL (60-115); Potassium 3.3 mmol/l (3.3-5.1); Sodium 138 mmol/L (135-145)
[2020-09-03 10:06] VITALS: BP 131/67; PULSE 94
[2020-09-03] MEDS: buPROPion HCl XL 150 MG TAB.ER.24H PO (10:06)
[2020-09-03] MEDS: Sodium Bicarbonate 650 MG TABLET PO (10:06)
[2020-09-03] MEDS: Metoprolol Succinate ER 100 MG TAB.ER.24H 25 MG PO (10:06)
--- NOTE | 2020-09-03 10:51 | PM.DS ---
DS: Providers Provider Date of admission: 08/31/20 12:49 Primary care physician: Gustavo Garland MD Consults: 08/31/20 14:12 Consult to Nephrology Routine Consulting Provider: Jerson Carter Reason for consultation: Evaluation for acute kidney injury DS: Diagnosis Discharge Diagnosis (1) ARYA (acute kidney injury): Status: Acute (2) Acute dehydration: Status: Acute DS: Medications Discharge Medications Home Medications: Home Medications Medication Instructions Recorded Confirmed alprazolam 0.5 mg tablet 0.5 mg PO TID PRN 08/01/20 08/31/20 bupropion HCl 150 mg 24 hr tablet, 150 mg PO DAILY 08/01/20 08/31/20 extended release estradiol 10 mcg vaginal tablet 10 mcg VAGINAL 2XW 08/01/20 08/31/20 butorphanol 1 spray INTRANASAL Q4H PRN 08/31/20 08/31/20 rosuvastatin 40 mg PO DAILY 08/31/20 08/31/20 Previous Rx's Medication Instructions Recorded metoprolol succinate [Toprol XL] 50 mg PO DAILY #30 tab 09/03/20 sodium bicarbonate 650 mg PO TID #90 tab 09/03/20 DS: Summary Hospital Course Hospital Course: History of presenting illness Chief Complaint: Abnormal blood work A 65 years old lady with PMH of HTN, HLD, anxiety and depression who presents to the hospital as a referral from PCP office for abnormal blood work. The patient reports episodes of nausea and vomiting couple weeks ago that she did not recover completely from them as she was not eating very well or drinking plenty of water for the feeling of nausea that she had all the time. This feeling was associated with increase weakness and feeling fatigue. She went to see her primary on Saturday who did blood work and called her earlier today to come back to the hospital for acute kidney injury with creatinine worsening from baseline of 1 to 3 on Saturday. The patient kidney ultrasound done at [facility] yesterday negative for any acute obstruction or hydronephrosis. Repeated blood work in the emergency showed creatinine of 5.2. Admitted for further evaluation and treatment. [facility] Medical History (Updated 08/31/20 @ 09:57 by ALTAF Dorman) Anxiety High cholesterol HTN (hypertension) Migraine Acute kidney injury With non-anion gap metabolic acidosis, hyperphosphatemia patient renal function is gradually coming down from 5.2 to 4.1 today, patient clinically feels better no further bout of nausea vomiting and diarrhea, tolerating by mouth well, blood pressure is stable, patient was followed closely by Dr. Carter, she has a broad DDx possibly ATN: d/t combination of renal hypoperfusion from dehydration and BIANCA/diuretic/ NSAID use all contributing to ischemic ATN AGN/RPGN: sero in the works; despite absence of rbc casts this does NOT rule out, AIN ( NSAIDS and PPI have been assoc),Dysproteinemia: eg Myeloma..naveed given anemia Kidney ultrasound done at [facility] 08/30 negative for any acute obstruction or hydronephrosis, patient PPI has been discontinued, blood pressure medications have been adjusted to avoid hypotension renal biopsy has been obtained report is pending patient is being discharged home today will have a repeat labs in 48 hours and follow-up with Dr. Carter early next week, plan of care explained to patient and she is agreeable Anemia patient noted to have significantly low hematocrit, B12 and folate within normal range, low iron saturation question anemia related to kidney disease, no active bleeding noted, patient received 1 unit of packed RBC and IV iron hematocrit has improved will repeat CBC early next week and patient be started on Procrit. Hyponatremia resolved HTN will continue to hold losartan, and HCTZ, due to low blood pressure dose of metoprolol has been lowered to 50 mg GERD omeprazole has been discontinued once acute interstitial nephritis is ruled out and patient can be started back on Prilosec due to prior history of Esquivel's esophagus Time Spent with Patient Time attestation: Total time spent providing and/or coordinating discharge services: Physical Exam Vital Signs: Vital Signs: Last Vital Signs Temp 98.0 F 09/03/20 07:41 Pulse 94 09/03/20 10:06 Resp 18 09/03/20 07:41 BP 131/67 09/03/20 10:06 Pulse Ox 99 09/03/20 07:41 Body Mass Index 23.8 General patient resting comfortably in no acute distress. Neck is supple no JVD. CVS regular rate rhythm, Respiratory lungs clear to auscultation, no respiratory distress, . Gastrointestinal abdomen soft, nontender, bowel sounds audible. Extremities no clubbing cyanosis or edema. Neuro nonfocal. Skin no rash DS: Data Data Completed and Pending Pending studies at discharge: Pending at discharge 09/02/20 11:04 Surgical [PTH] Stat Labs on day of discharge: 08/31/20 09:36 Basic Metabolic Panel Stat Complete Blood Count Auto Diff Stat Liver Panel Stat Magnesium Stat Phosphorus Stat 08/31/20 09:45 Creatinine Urine Stat Sodium Urine Random Stat Urea, Random Urine Stat 08/31/20 10:45 0.9 % Sodium Chloride [Ns] 1,000 ml IVCONT 999 mls/hr 08/31/20 11:17 ED Diet NOW 08/31/20 11:30 COVID-19 ID NOW ([facility]) Stat 08/31/20 12:43 Transfer Order Routine 08/31/20 12:51 Consult Rx Perform Med Rec 1 each MISCELLANE ONCE ONE 08/31/20 14:12 0.9 % Sodium Chloride [Ns] 1,000 ml IVCONT 50 mls/hr 08/31/20 Lunch Low Sodium Diet 08/31/20 17:00 Heparin Sodium,Porcine 5,000 unit SUBCUT Q12H 08/31/20 17:50 Basic Metabolic Panel Routine 08/31/20 19:23 Creatinine Urine Stat Total Protein Urine Random Stat Urine Eosinophil Urgent 08/31/20 20:00 Creatine Kinase Total Urgent Hepatitis B,C Profile Urgent Phosphorus Urgent 08/31/20 20:01 IRON PROFILE Urgent 09/01/20 06:22 Basic Metabolic Panel Routine Complete Blood Count Auto Diff DAILY@0600 IRON PROFILE Routine Phosphorus Routine Prothrombin Time INR DAILY Vitamin B12 and Folate Routine 09/01/20 09:00 Metoprolol Succinate ER [Toprol XL] 100 mg PO DAILY NIFEdipine ER [Procardia XL] 30 mg PO DAILY Omeprazole [PriLOSEC] 20 mg PO DAILY 09/01/20 Breakfast NPO Diet 09/01/20 11:52 Sodium Ferric Gluconat/Sucrose [Ferrlecit] 125 mg 0.9 % Sodium Chloride [Ns] 100 ml IV ONCE 09/01/20 13:44 Red Blood Cells Routine Type and Screen Routine 09/01/20 Lunch Low Sodium Diet 09/02/20 CT biopsy renal RT Routine 09/02/20 06:40 Basic Metabolic Panel Routine Complete Blood Count Auto Diff Routine 09/02/20 09:00 Desmopressin Acetate [Ddavp] 15 mcg 0.9 % Sodium Chloride [Ns] 50 ml IV ONCE 09/02/20 Breakfast NPO Diet 09/02/20 10:11 Lidocaine HCl 1 % MPF [Xylocaine 1 % MPF] 5 ml .ROUTE .STK-MED ONE Midazolam HCl/PF [Versed] 2 mg .ROUTE .STK-MED ONE Naloxone HCl [Narcan] 0.4 mg .ROUTE .STK-MED ONE fentaNYL citrate/PF [Sublimaze] 50 mcg .ROUTE .STK-MED ONE flumazeniL [Romazicon] 0.05 mg .ROUTE .STK-MED ONE 09/02/20 11:26 Lidocaine HCl 1 % MPF [Xylocaine 1 % MPF] 10 ml SUBCUT ONCE ONE Lidocaine HCl 1 % MPF [Xylocaine 1 % MPF] 5 ml SUBCUT ONCE ONE 09/02/20 18:31 Communication Order NOW 09/02/20 18:40 Complete Blood Count no Diff Stat 09/02/20 22:22 Electrolytes Stat 09/03/20 07:24 Basic Metabolic Panel Routine Complete Blood Count Auto Diff Routine Laboratory Last Values WBC 6.6 X10*3/uL (4.8-10.8) 09/03/20 07:24 RBC 2.63 X10*6/uL (4.20-5.50) L 09/03/20 07:24 Hgb 8.6 g/dl (12.0-16.0) L 09/03/20 07:24 Hct 25.7 % (37-47) L 09/03/20 07:24 MCV 97.7 fL (80-98) 09/03/20 07:24 MCH 32.7 pg (27.0-33.0) 09/03/20 07:24 MCHC 33.5 g/dl (31.0-35.0) 09/03/20 07:24 RDW 14.3 % (11.0-16.0) 09/03/20 07:24 Plt Count 229 X10*3/uL (160-400) 09/03/20 07:24 MPV 9.3 fL (9.4-12.3) L 09/03/20 07:24 Immature Gran % (Auto) 0.5 % (0.0-0.4) H 09/03/20 07:24 Neut % (Auto) 72.6 % (45-73) 09/03/20 07:24 Lymph % (Auto) 14.9 % (20-40) L 09/03/20 07:24 [place] % (Auto) 9.7 % (2-11) 09/03/20 07:24 Eos % (Auto) 1.5 % (0-4) 09/03/20 07:24 Baso % (Auto) 0.8 % (0-2) 09/03/20 07:24 Lymph # (Auto) 1.0 X10*3/uL (1.2-4.9) L 09/03/20 07:24 [place] # (Auto) 0.6 X10*3/uL (0.1-1.2) 09/03/20 07:24 Eos # (Auto) 0.1 X10*3/uL (0.0-0.4) 09/03/20 07:24 Baso # (Auto) 0.1 X10*3/uL (0.0-0.2) 09/03/20 07:24 Abs Immat Gran (auto) 0.03 X10*3/uL (0.00-0.03) 09/03/20 07:24 Absolute Neuts (auto) 4.8 X10*3/uL (2.0-8.3) 09/03/20 07:24 Absolute Nucleated RBC 0.000 X10*3/uL (0.0-0.012) 09/03/20 07:24 Nucleated RBC % (auto) 0.0 /100WBC (0.0-0.2) 09/03/20 07:24 PT 10.6 SEC (10.8-13.0) L 09/01/20 06:22 INR 0.9 (0.9-1.1) 09/01/20 06:22 Sodium 138 mmol/L (135-145) 09/03/20 07:24 Potassium 3.3 mmol/l (3.3-5.1) 09/03/20 07:24 Chloride 106 mmol/L (96-108) 09/03/20 07:24 Carbon Dioxide 20 mmol/L (22-29) L 09/03/20 07:24 Anion Gap 15 (12-20) 09/03/20 07:24 BUN 37 mg/dL (9-16) H 09/03/20 07:24 Creatinine 4.12 mg/dL (0.5-1.4) H* 09/03/20 07:24 Estim Creat Clear Calc 11.1 09/03/20 07:24 Estimated GFR 11 09/03/20 07:24 Random Glucose 84 mg/dL (60-115) 09/03/20 07:24 Calcium 7.5 mg/dL (8.4-10.2) L 09/03/20 07:24 Phosphorus 5.4 mg/dL (2.7-4.5) H 09/01/20 06:22 Phosphorus Cancelled 09/01/20 06:22 Magnesium 1.7 mg/dL (1.6-2.6) 08/31/20 09:36 Iron 52 mcg/dL (30-160) 09/01/20 06:22 TIBC 235 mcg/dL (228-428) 09/01/20 06:22 % Saturation 22 % (15-50) 09/01/20 06:22 Unsat Iron Binding 183 ug/dL 09/01/20 06:22 Total Bilirubin 0.4 mg/dL (0.0-1.0) 08/31/20 09:36 Direct Bilirubin 0.2 mg/dL (0.0-0.5) 08/31/20 09:36 AST 26 U/L (5-31) 08/31/20 09:36 ALT 16 U/L (0-31) 08/31/20 09:36 Alkaline Phosphatase 114 U/L (39-117) 08/31/20 09:36 Total Creatine Kinase 65 U/L (26-140) 08/31/20 20:00 Total Protein 7.1 g/dL (6.5-8.0) 08/31/20 09:36 Albumin 4.3 g/dL (3.5-5.0) 08/31/20 09:36 Vitamin B12 336 pg/mL (200-900) 09/01/20 06:22 Folate 14.4 ng/mL (> or = 4.0) 09/01/20 06:22 Urine Color STRAW 08/31/20 09:36 Urine Appearance HAZY 08/31/20 09:36 Urine pH 5.5 (5.0-8.0) 08/31/20 09:36 Ur Specific [place] 1.010 (1.005-1.025) 08/31/20 09:36 Urine Protein 1+ MG/DL (NEG-TRACE) H 08/31/20 09:36 Urine Glucose (UA) NEG MG/DL (NEG) 08/31/20 09:36 Urine Ketones NEG MG/DL (NEG) 08/31/20 09:36 Urine Blood 2+ (NEG) H 08/31/20 09:36 Urine Nitrite NEG (NEG) 08/31/20 09:36 Ur Leukocyte Esterase NEG (NEG) 08/31/20 09:36 Urine RBC 5-9 /HPF (0) H 08/31/20 09:36 Urine WBC 1-4 /HPF (0-4) 08/31/20 09:36 Ur WBC Total Counted 0 CELLS 09/01/20 01:52 Ur Squamous Epith Cells 2+ /LPF 08/31/20 09:36 Amorphous Sediment 3+ /LPF 08/31/20 09:36 Urine Bacteria 1+ /LPF 08/31/20 09:36 Granular Casts 5-9 /LPF 08/31/20 09:36 Urine Eosinophils 0 CELLS 09/01/20 01:52 Urine Eosinophils % 0.0 % 09/01/20 01:52 U Random Total Protein 21 mg/dL (<12) H 09/01/20 01:52 Ur Random Sodium 21.0 mmol/L 08/31/20 09:45 Ur Random Urea 161 mg/dL 08/31/20 09:45 Urine Creatinine 29.49 mg/dL 09/01/20 01:52 JARON Screen NEGATIVE (NEGATIVE) 08/31/20 20:01 Proteinase 3 (PR3) Ab <1.0 AI 08/31/20 20:00 Myeloperoxidase Ab <1.0 AI 08/31/20 20:00 Complement C3 122 mg/dL (83-193) 08/31/20 20:00 Complement C4 29 mg/dL (15-57) 08/31/20 20:00 COVID-19 (ELIDIA) Negative (Negative) 08/31/20 11:30 COVID-19 Clin Com See Note 08/31/20 11:30 Hep Bs Antigen Negative (Negative) 08/31/20 20:00 Hep Bs Antibody NONREACTIVE (Nonreactive) 08/31/20 20:00 Hep B Core Total Ab Nonreactive (Nonreactive) 08/31/20 20:00 Hepatitis C Ab (EIA) Nonreactive (Nonreactive) 08/31/20 20:00 Blood Type O Positive 09/01/20 13:44 Antibody Screen NEGATIVE 09/01/20 13:44 Crossmatch See Detail 09/01/20 13:44 Discharge Plan Discharge Patient Disposition: Home, Self-Care Referrals: Gustavo Garland MD [Primary Care Provider] - Discharge Medications: New sodium bicarbonate 650 mg Tablet 650 mg PO TID Qty: 90 RF: 0 metoprolol succinate [Toprol XL] 50 mg tablet extended release 24 hr 50 mg PO DAILY Qty: 30 RF: 0 Continued rosuvastatin 40 mg Tablet 40 mg PO DAILY RF: 0 butorphanol 10 mg/mL spray,non-aerosol 1 spray intranasal Q4H PRN (Reason: Pain) RF: 0 alprazolam 0.5 mg tablet 0.5 mg PO TID PRN (Reason: Anxiety) RF: 0 estradiol 10 mcg tablet 10 mcg vaginal 2XW RF: 0 bupropion HCl 150 mg tablet extended release 24 hr 150 mg PO DAILY RF: 0 Discontinued omeprazole 20 mg capsule,delayed release(DR/EC) 20 mg PO DAILY RF: 0 rosuvastatin 40 mg tablet 40 mg PO DAILY RF: 0 metoprolol succinate 100 mg tablet extended release 24 hr 100 mg PO DAILY RF: 0 Discharge Orders: Discharge Order (Routine); Ordered 09/03/20 Ordered By: Imelda Marsh Diet: low fat, low cholesterol Activity on Discharge: As tolerated Other Ambulatory Orders: Basic Metabolic Panel (Routine) Timeframe: 2 Days Facility: [facility] - Location: Laboratory Ordered By: Imelda Marsh Complete Blood Count no Diff (Routine) Timeframe: 2 Days Facility: [facility] - Location: Laboratory Ordered By: Imelda Marsh Visit Report Forms: Patient Portal Discharge page Care Plan Goals: check labs on Saturday and follow-up with Nephrology as planned Health Concerns: take all medications as prescribed Plan of Treatment: follow-up with primary care physician and Nephrology.
--- NOTE | 2020-09-03 10:56 | MHC.CM.PN ---
PATIENT IS RETURNING HOME - SELF CARE. RN AWARE OF PLAN.
[2020-09-03 12:00] VITALS: BP 127/76; PULSE 75; RESP 18; TEMP 36.1; O2SAT 98
[2020-09-05 19:11] LABS: Calcium (PTHI) 7.8 mg/dL (8.6-10.4); PTHI 168 pg/mL (14-64)
[2020-09-05 19:11] LABS: IgA 294 mg/dL (70-320); IgG 555 mg/dL (600-1540); IgM 40 mg/dL (50-300)
== END 2020-09-03 13:55 | disposition home or self-care (01) | DRG 469 ==
LOC: HO.ED 11:05 → HO.S3 13:07
PROVIDERS: Internal Medicine Nephrology; Physician Assistant; Admitting Provider Student in an Organized Health Care Education/Training Program; Emergency Provider Emergency Medicine; PCP Internal Medicine; Visit Provider Hospitalist
DX: N17.0 Acute kidney failure with tubular necrosis (principal); E87.2 Acidosis; E86.0 Dehydration; I10 Essential (primary) hypertension; E78.5 Hyperlipidemia, unspecified; F41.9 Anxiety disorder, unspecified; D53.9 Nutritional anemia, unspecified; E87.1 Hypo-osmolality and hyponatremia; Z20.828 Contact with and (suspected) exposure to other viral communicable diseases; Z88.5 Allergy status to narcotic agent; Z79.899 Other long term (current) drug therapy
CPT/HCPCS: 36415; 50200; 77012; 80048; 80051; 80076; 81001; 82550; 82607; 82746; 82784; 83540; 83735; 83970; 84100; 84156; 84300; 84540; 85025; 85027; 85610; 86021; 86038; 86039; 86160; 86334; 86704; 86706; 86803; 86850; 86900; 86901; 86920; 86923; 87340; 87635; 88300; 88305; 88313; 88346; 88348; 88350; 89190; 96360; 99152; 99285; J2597; J2916; P9016

== ENCOUNTER 2020-09-05 10:39 | Outpatient (REF) | payer OTHER, SELFPAY ==
[2020-09-05 14:05] LABS: Hematocrit 26.5 % (37-47); Hemoglobin 9.1 g/dl (12.0-16.0); Mean Corpuscular HGB Conc 34.3 g/dl (31.0-35.0); Mean Corpuscular Hemoglobin 32.7 pg (27.0-33.0); Mean Corpuscular Volume 95.3 fL (80-98); Mean Platelet Volume 9.6 fL (9.4-12.3); Platelet Count 304 X10*3/uL (160-400); Red Blood Count 2.78 X10*6/uL (4.20-5.50); Red Cell Distribution Width 13.2 % (11.0-16.0); White Blood Count 6.7 X10*3/uL (4.8-10.8)
[2020-09-05 14:29] LABS: Anion Gap 15 (12-20); Blood Urea Nitrogen 23 mg/dL (9-16); Calcium 7.4 mg/dL (8.4-10.2); Carbon Dioxide 21 mmol/L (22-29); Chloride 98 mmol/L (96-108); Estimated Glomerular Filt Rate 25; Glucose Random 81 mg/dL (60-115); Potassium 3.5 mmol/l (3.3-5.1); Sodium 130 mmol/L (135-145)
== END 2020-09-05 10:40 | disposition home or self-care (01) ==
LOC: HO.HMGCLDS 10:39
PROVIDERS: PCP Internal Medicine; Visit Provider Hospitalist
DX: N17.9 Acute kidney failure, unspecified (principal)
CPT/HCPCS: 36415; 80048; 85027

== ENCOUNTER 2020-09-09 09:35 | Outpatient (REF) | payer OTHER, SELFPAY | END 2020-09-09 09:36 | disposition home or self-care (01) | LOC: HO.HMGCLDS 09:35 | PROVIDERS: Visit Provider Hospitalist | DX: Z20.828 Contact with and (suspected) exposure to other viral communicable diseases (principal) | CPT/HCPCS: U0003 ==

== ENCOUNTER 2020-09-20 07:56 | Outpatient (REF) | payer OTHER, SELFPAY ==
[2020-09-20 11:51] LABS: MANUAL DIFF FLAG NO
[2020-09-20 11:59] LABS: Basophils Absolute Auto 0.1 X10*3/uL (0.0-0.2); Basophils Percent Auto 1.3 % (0-2); Eosinophils Absolute Auto 0.1 X10*3/uL (0.0-0.4); Eosinophils Percent Auto 1.8 % (0-4); Hemoglobin 10.3 g/dl (12.0-16.0); Imm Gran Abs Auto 0.01 X10*3/uL (0.00-0.03); Imm Gran Pct Auto 0.2 % (0.0-0.4); Lymphocytes Absolute Auto 1.9 X10*3/uL (1.2-4.9); Lymphocytes Percent Auto 34.9 % (20-40); Mean Corpuscular HGB Conc 32.2 g/dl (31.0-35.0); Mean Corpuscular Hemoglobin 33.1 pg (27.0-33.0); Mean Corpuscular Volume 102.9 fL (80-98); Mean Platelet Volume 9.9 fL (9.4-12.3); Monocytes Absolute Auto 0.6 X10*3/uL (0.1-1.2); Monocytes Percent Auto 11.2 % (2-11); Neutrophils Absolute Auto 2.8 X10*3/uL (2.0-8.3); Neutrophils Percent Auto 50.6 % (45-73); Platelet Count 457 X10*3/uL (160-400); Red Blood Count 3.11 X10*6/uL (4.20-5.50); Red Cell Distribution Width 14.6 % (11.0-16.0); White Blood Count 5.5 X10*3/uL (4.8-10.8)
[2020-09-20 12:40] LABS: Anion Gap 13 (12-20); Blood Urea Nitrogen 17 mg/dL (9-16); Calcium 8.5 mg/dL (8.4-10.2); Carbon Dioxide 24 mmol/L (22-29); Chloride 112 mmol/L (96-108); Estimated Glomerular Filt Rate 44; Phosphorus 2.9 mg/dL (2.7-4.5); Potassium 4.3 mmol/l (3.3-5.1); Sodium 145 mmol/L (135-145)
[2020-09-20 14:10] LABS: Renal w Reflex Lab Use Only Order verified
== END 2020-09-20 07:57 | disposition home or self-care (01) ==
LOC: HO.HMGCLDS 07:56
PROVIDERS: PCP Internal Medicine; Visit Provider Internal Medicine Nephrology
DX: E78.5 Hyperlipidemia, unspecified (principal); I10 Essential (primary) hypertension; N17.8 Other acute kidney failure
CPT/HCPCS: 36415; 80051; 82310; 82565; 84100; 84520; 85025

== ENCOUNTER 2020-09-23 07:58 | Outpatient (REF) | payer OTHER, SELFPAY ==
[2020-09-23 08:37] LABS: COVID-19 Test Negative (Negative)
== END 2020-09-23 07:59 | disposition home or self-care (01) ==
LOC: HO.EMPCOV 07:58
PROVIDERS: Visit Provider Internal Medicine
DX: Z20.828 Contact with and (suspected) exposure to other viral communicable diseases (principal)
CPT/HCPCS: 87635; C9803

== ENCOUNTER → 2020-09-26 08:03 | Outpatient (BNVA) | payer SELFPAY | DX: Z76.89 Persons encountering health services in other specified circumstances (principal) ==

== ENCOUNTER 2020-10-03 16:11 | Outpatient (REF) | payer OTHER, SELFPAY ==
--- NOTE | 2020-10-03 16:16 | XR_ITS ---
EXAMINATION: XR KNEE, RIGHT CLINICAL INFORMATION: Knee pain. COMPARISON: None TECHNIQUE: Four views of the right knee. No fracture. Small joint effusion. Alignment is anatomic. Joint spaces are well maintained. No abnormal soft tissue calcification. XR/XR knee RT 4V IMPRESSION: No evidence of acute fracture. Small effusion.
== END 2020-10-03 16:12 | disposition home or self-care (01) ==
LOC: HO.HMGCX 16:11
PROVIDERS: PCP Internal Medicine; Visit Provider Hospitalist
DX: M25.561 Pain in right knee (principal)
CPT/HCPCS: 73564

== ENCOUNTER 2020-10-17 14:57 | Outpatient (REF) | payer OTHER, SELFPAY ==
[2020-10-17 15:15] LABS: COVID-19 Test Negative (Negative); IDNOW Serial# 55D5AD1C
== END 2020-10-17 14:58 | disposition home or self-care (01) ==
LOC: HO.EMPCOV 14:57
PROVIDERS: PCP Internal Medicine; Visit Provider Internal Medicine
DX: Z20.828 Contact with and (suspected) exposure to other viral communicable diseases (principal)
CPT/HCPCS: 87635; C9803

== ENCOUNTER 2020-12-27 07:32 | Outpatient (REF) | payer OTHER, SELFPAY ==
[2020-12-27 07:54] LABS: COVID-19 Test Positive (Negative); IDNOW Serial# 55D5AD1C
== END 2020-12-27 07:33 | disposition home or self-care (01) ==
LOC: HO.EMPCOV 07:32
PROVIDERS: Visit Provider Internal Medicine
DX: Z11.52 Encounter for screening for COVID-19 (principal)
CPT/HCPCS: 36415; 87635; C9803

== ENCOUNTER 2021-02-20 13:55 | Outpatient (REF) | payer OTHER, SELFPAY ==
--- NOTE | ~2021-02-20 | XR_ITS ---
EXAMINATION: XR HIP, LEFT CLINICAL INFORMATION: Pain COMPARISON: Pelvis x-ray January 2018 TECHNIQUE: Two views of the left hip. FINDINGS: Bone alignment is normal. No fracture or dislocation is seen. There is mild left hip arthritis with small osteophytes. Bones of the pelvis are unremarkable. Soft tissues are unremarkable. XR/XR hip LT min 2V IMPRESSION: Mild left hip arthritis.
== END 2021-02-20 13:56 | disposition home or self-care (01) ==
LOC: HO.HMGCX 13:55
PROVIDERS: PCP Internal Medicine; Visit Provider Hospitalist
DX: M25.552 Pain in left hip (principal)
CPT/HCPCS: 73502

== ENCOUNTER 2021-06-08 14:00 | Outpatient (REF) | payer OTHER, SELFPAY ==
--- NOTE | ~2021-06-08 | XR_ITS ---
EXAMINATION: XR KNEE, RIGHT CLINICAL INFORMATION: M25.561 - Pain in right knee COMPARISON: Right knee radiographs 10/03/2020 TECHNIQUE: Four views of the right knee. FINDINGS: There is small suprapatellar effusion similar to prior exam 10/03/2020. Spurring at the quadriceps insertion patella is also again seen. There is no fracture or dislocation or destructive process. No interval joint narrowing or erosive change or chondrocalcinosis. Hoffa's fat pad appears normal. Normal bony mineralization. XR/XR knee RT 4V IMPRESSION: 1. Spurring quadriceps insertion patella. Small suprapatellar effusion. 2. No acute bony abnormality. Findings similar to 10/03/2020.
== END 2021-06-08 14:01 | disposition home or self-care (01) ==
LOC: HO.HMGCX 14:00
PROVIDERS: PCP Internal Medicine; Visit Provider Hospitalist
DX: M25.561 Pain in right knee (principal)
CPT/HCPCS: 73564

== ENCOUNTER 2021-07-03 09:56 | Emergency (ER) | payer OTHER, SELFPAY ==
--- NOTE | 2021-07-03 10:16 | ECG_ITS ---
Test Reason : CP Blood Pressure : / mmHG Vent. Rate : 068 BPM Atrial Rate : 068 BPM P-R Int : 116 ms QRS Dur : 084 ms QT Int : 388 ms P-R-T Axes : 015 016 035 degrees QTc Int : 412 ms Normal sinus rhythm Normal ECG When compared with ECG of 07-MAY-2018 09:53, Vent. rate has decreased BY 48 BPM Referred By: Generic ED Physician Electronically Signed By:JALYN BLUM
[2021-07-03 11:15] VITALS: BP 115/78; PULSE 72; RESP 16; TEMP 36.9; O2SAT 98; BMI 25.4
== END 2021-07-03 11:52 | disposition left against medical advice (07) ==
PROVIDERS: Emergency Provider Emergency Medicine; PCP Internal Medicine
DX: R07.9 Chest pain, unspecified (principal)
CPT/HCPCS: 93005; 99282; 99283

== ENCOUNTER → 2021-07-13 07:49 | Outpatient (BNVA) | payer OTHER, SELFPAY | PROVIDERS: PCP Internal Medicine; Visit Provider Orthopaedic Surgery ==

== ENCOUNTER 2021-10-24 06:58 | Outpatient (REF) | payer OTHER, SELFPAY | END 2021-10-24 06:59 | disposition home or self-care (01) | LOC: HO.HMGCLDS 06:58 | PROVIDERS: Visit Provider Internal Medicine | DX: Z20.822 Contact with and (suspected) exposure to COVID-19 (principal) | CPT/HCPCS: C9803; U0003; U0005 ==

== ENCOUNTER 2022-01-12 11:00 | Outpatient (RCR) | payer OTHER, SELFPAY ==
--- NOTE | 2021-12-01 10:50 | MHC.PT.EP ---
[facility] [place] Office [place] Office [place] Office [address] Amelia Sam [address] [phone] F: [phone] F: [phone] F: [phone] F: [phone] Physical Therapy Plan of Care Date of Evaluation: Date of Surgery: Diagnosis: spinal stenosis lumbar region with neurogenic claudication Assessment: 66 y/o F referred to PT with spinal stenosis, lumbar region with neurogenic claudication. She reports sudden onset one week ago with pain referring to L hip and down anterior L LE to the ankle. 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 Examination shows decreased lumbar AROM, R lateral shift, decreased strength of L LE (most likely due to pain), increased pain L piriformis/SI region, increased pain, and impaired gait pattern. S/s consistent with lumbar derangement. Recommend PT 2x/week for 5 weeks to address impairments, implement HEP, and optimize functional mobility. Frequency and Duration: The patient will be seen 2x/week for 5 weeks Short Term Goals: 3 weeks 1. Compliance with HEP 2. Improve lumbar AROM flexoin to 100% and extension to 50% 3. Pt will be able to sit >10min with neutral posture [facility] Goals: 5 weeks 1. I with HEP and self management 2. Pt will be able to walk > 20 min with pain < 3/10 3. Pt will demosntrate 4+/5 L LE strength to facilitate walking and stairs Treatment Plan: Modalities to reduce pain, spasms and effusion. Manual therapy to restore motion and function. Therapeutic exercise to improve strength and flexibility. Neuromuscular re-education for posture and balance. Therapeutic activities to return to functional activities of daily living. Electronically signed by: Amber Reagan PT Please sign and return to therapist. Thank you for your referral.
--- NOTE | 2022-01-12 11:58 | MHC.PT.DC ---
[facility] [place] Office [place] Office [place] Office [address] Amelia Sam [address] [phone] F: [phone] F: [phone] F: [phone] F: [phone] Physical Therapy Discharge Report Diagnosis: spinal stenosis lumbar region with neurogenic claudication Date of Surgery: Date of Evaluation: 12/01/21 Date of Discharge: 01/12/22 Treatments to Date: 11 Cancellations to Date: 0 No Shows to Date: 0 Discharge Status: Achieved Goals Improved Function Independent with HEP Discharge Summary: Pt has demonstrated good progress with significantly improved transitional movement, lumbar AROM, and strength. Her Oswestry is now 3/50 showing improvement. Reviewed HEP and what to do with flare-ups in the future. Appropriate for d/c secondary to meeting all goals and I with HEP. Electronically signed by: Amber Reagan PT DPT Please sign and return to therapist. Thank you for your referral.
== END 2022-01-12 11:58 | disposition home or self-care (01) ==
LOC: HO.PTCHIC 11:00
PROVIDERS: PCP Internal Medicine; Visit Provider Orthopaedic Surgery
DX: M48.062 Spinal stenosis, lumbar region with neurogenic claudication (principal)
CPT/HCPCS: 97014; 97110; 97140; 97161; 97530

== ENCOUNTER 2022-01-23 08:41 | Day surgery (SDC) | payer OTHER, SELFPAY ==
--- NOTE | 2022-01-22 09:55 | P.CONAN_ITS ---
Documented by User: Tatum Hahn NP 01/22/22 09:56 HPI - Anesthesia Eval Consult details Narrative: 66yo F for Upper Endoscopy and Colonoscopy PMFSH Active Problems Active Problems: All Active Problems (Updated 01/15/22 @ 12:56 by Tim Leggett MD) Low back pain (Acute) Exposure to COVID-19 virus (Acute) Viral syndrome (Acute) ARYA (acute kidney injury) (Acute) Right knee pain (Acute) Trapezius muscle spasm (Acute) Left hip pain (Acute) Trochanteric bursitis (Acute) B12 deficiency (Acute) Osteoarthritis of left hip (Acute) Chest pain (Acute) Neurogenic claudication (Acute) Low back pain (Acute) Past Medical History Medical History Anxiety Barretts esophagus High cholesterol HTN (hypertension) Hx of renal failure Migraine headache On beta donato at home Osteoarthritis Surgical History Surgical History History of carpal tunnel surgery History of esophagogastroduodenoscopy Hx of section Hx of colonoscopy Hx of elbow surgery Social History Social History (Updated 07/13/21 @ 08:02 by Rebeka Lindo CMA) Household Members: None Housing: House Do you presently have visiting nurse or other home services: No Patient Tobacco Use Status: Never used Tobacco Use of substances other than those prescribed or required for medical reasons: No Advance Directives: No Advance Directives Information Provided: Yes Nutrition Risks: No Nutritional Risk service: No Current occupational status: employed Current occupation: [employer] Meds Allergies Allergy/AdvReac Type Severity Reaction Status Date / Time oxycodone [Percocet] Allergy Unknown itching, Verified 01/15/22 11:18 N/V Home Medications Medication Instructions Recorded Confirmed Last Taken Type alprazolam 0.5 mg tablet 0.5 mg PO TID PRN 08/01/20 11/21/21 01/23/22 History 0.5 mg bupropion HCl 150 mg 24 hr tablet, 150 mg PO DAILY 08/01/20 11/21/21 Unknown History extended release estradiol 10 mcg vaginal tablet 10 mcg VAGINAL 2XW 08/01/20 11/21/21 Unknown History butorphanol 10 mg/mL nasal spray 1 spray INTRANASAL Q4H PRN 08/31/20 11/21/21 Unknown History rosuvastatin 40 mg tablet 40 mg PO DAILY 08/31/20 11/21/21 Unknown History levothyroxine 25 mcg tablet 25 mcg PO DAILY 02/02/21 11/21/21 Unknown History famotidine 40 mg tablet (Pepcid) 40 mg PO BEDTIME 11/21/21 11/21/21 01/23/22 History 40 mg multivitamin 1 tab PO DAILY 11/21/21 11/21/21 Unknown History Exam Exam Date and Time: January 22, 2022 0955 Narrative Narrative: EKG 06/2021 Vent. Rate : 068 BPM ? ? Atrial Rate : 068 BPM ?? P-R Int : 116 ms? QRS Dur : 084 ms ? ? QT Int : 388 ms ? ? ? P-R-T Axes : 015 016 035 degrees ?? QTc Int : 412 ms ? Normal sinus rhythm Normal ECG When compared with ECG of 07-MAY-2018 09:53, Vent. rate has decreased BY? 48 BPM Assessment and Plan Assessment Anesthesia Assessment: Chart Reviewed Documented by User: Nicolas Marx MD 01/23/22 09:27 [facility] Past Medical History Medical History Anxiety Barretts esophagus High cholesterol HTN (hypertension) Hx of renal failure Migraine headache On beta donato at home Osteoarthritis Family History Family history of problems with anesthesia: No Surgical History Surgical History History of carpal tunnel surgery History of esophagogastroduodenoscopy Hx of section Hx of colonoscopy Hx of elbow surgery History of Problems with Anesthesia: No Social History Social History (Updated 07/13/21 @ 08:02 by Rebeka Lindo CMA) Household Members: None Housing: House Do you presently have visiting nurse or other home services: No Patient Tobacco Use Status: Never used Tobacco Use of substances other than those prescribed or required for medical reasons: No Advance Directives: No Advance Directives Information Provided: Yes Nutrition Risks: No Nutritional Risk service: No Current occupational status: employed Current occupation: [employer] - [employer] Meds Allergies Allergy/AdvReac Type Severity Reaction Status Date / Time oxycodone [Percocet] Allergy Unknown itching, Verified 01/15/22 11:18 N/V Home Medications Medication Instructions Recorded Confirmed Last Taken Type alprazolam 0.5 mg tablet 0.5 mg PO TID PRN 08/01/20 11/21/21 01/23/22 History 0.5 mg bupropion HCl 150 mg 24 hr tablet, 150 mg PO DAILY 08/01/20 11/21/21 Unknown History extended release estradiol 10 mcg vaginal tablet 10 mcg VAGINAL 2XW 08/01/20 11/21/21 Unknown History butorphanol 10 mg/mL nasal spray 1 spray INTRANASAL Q4H PRN 08/31/20 11/21/21 Unknown History rosuvastatin 40 mg tablet 40 mg PO DAILY 08/31/20 11/21/21 Unknown History levothyroxine 25 mcg tablet 25 mcg PO DAILY 02/02/21 11/21/21 Unknown History famotidine 40 mg tablet (Pepcid) 40 mg PO BEDTIME 11/21/21 11/21/21 01/23/22 History 40 mg multivitamin 1 tab PO DAILY 11/21/21 11/21/21 Unknown History Exam Airway Mallampati Class: II TM Dist: >3cm Neck ROM: Full Loose/Missing/Broken Teeth: No Heart: [id number] Lungs: cta b/l Assessment and Plan Assessment Anesthesia Assessment: Anesthesia Plan Discussed Final Anesthetic Review Family History of Problems with Anesthesia: No History of Problems with Anesthesia: No NPO: Yes ASA Class: III Final Preanesthetic Review: No Changes in Pt Med Stat, Meds/Allgs Chart Reviewed, Consent Obtained/Reviewed and Anes Risks/Benef Reviewed Patient Risk: Intermediate Procedure Risk: Low Assessment/Block/Sedation in SS: Assess/Block/Sedation-SS Anesthetic Plan Anesthetic Plan: MAC: and Agree w/ Assess. and Plan Disposition: Standard PACU
[2022-01-23 09:06] VITALS: BP 134/87; RESP 16; TEMP 36.2; O2SAT 97; BMI 25.4
[2022-01-23] MEDS: Lactated Ringers 1,000 ML 100 ML IVCONT (09:10)
--- NOTE | 2022-01-23 10:00 | MHC.SHP ---
Pre-Procedural Eval Section A Date of Service: 01/23/22 Section B Chief Complaint: barretts Details of Present Illness: see H&P no changes Relevant Family History (Specify if Yes): No Relevant Social History: None Present Medications: see Short Stay Collaborative assessment Medical History: No relevant PMH Allergies: Allergies Allergy/AdvReac Type Severity Reaction Status Date / Time oxycodone [Percocet] Allergy Unknown itching, Verified 01/15/22 11:18 N/V Review of Systems Sugical H&P ROS: Negative: Constitution, Cardiovascular, Respiratory, Neurological, Psychiatric, Hem-Onc, Allergic/Immunologic, Gastrointestinal, Genitourinary, Musculoskeletal, Integumentary, Endocrine and Eyes/Ears/Nose/Throat Exam Surgical H&P Exam: Normal: HEENT, Normal: Heart, Normal: Lungs, Normal: Extremities, Normal: Abdomen, Normal: Skin and Normal: Neurological Plan Diagnosis/Plan: Unchanged I have reviewed the history and physical and performed a pertinent physical examination on my patient. No changes have occurred unless specified.
--- NOTE | 2022-01-23 10:47 | P.BOP_ITS ---
Brief Operative Note Date of Service: 01/23/22 Pre-op diagnosis: barretts,screening Post-op diagnosis: same Procedure: egd,colon Surgeon: Billy Olivares Anesthesia: MAC Was an Plumber Apprentice used for this Procedure?: No Estimated blood loss (mL): 5 Pathology: other (bxs antrum, egj) Condition: stable Disposition: PACU
[2022-01-23 10:51] VITALS: BP 117/67; PULSE 118; RESP 16; TEMP 36.6; O2SAT 98
[2022-01-23 11:06] VITALS: BP 123/81; PULSE 116; RESP 18; TEMP 36.6; O2SAT 97
--- NOTE | 2022-01-23 11:32 | OP_ITS ---
SURGEON: Billy Olivares MD INDICATIONS: 1. Esquivel esophagus. 2. Colon cancer screening. PREOPERATIVE DIAGNOSIS: POSTOPERATIVE DIAGNOSIS: PROCEDURE PERFORMED: 1. Upper endoscopy with biopsy. 2. Colonoscopy to the cecum. ESTIMATED BLOOD LOSS: COMPLICATIONS: ANESTHESIA: ASSISTANTS: SPECIMENS: MEDICATIONS: Monitored anesthesia care. DESCRIPTION OF PROCEDURE: History and physical performed. The risks and benefits of the procedure were explained to the patient. Informed consent was obtained. The patient was placed in the left lateral decubitus position. The Olympus video gastroscope was introduced into the esophagus, stomach, and duodenum. Examination was performed and the scope was removed. She was repositioned for colonoscopy. A digital rectal exam was performed. The Olympus pediatric video colonoscope was introduced into the rectum and advanced to the cecum. The cecum was identified by transillumination, palpation, and identification of ileocecal valve. Examination was performed. The scope was removed. She tolerated both procedures well, returned to recovery area in stable condition. FINDINGS: UPPER ENDOSCOPY: 1. Esophagus: The esophagus was normal. There was a slightly irregular EG junction. There were no raised lesions or ulcerated areas. There was no esophagitis. Biopsies were obtained from the EG junction. There was a 5 cm hiatal hernia. 2. Stomach: The stomach showed some mild nonspecific erythema. Antral biopsies were obtained to evaluate for H pylori. 3. Duodenum: The bulb and second portion were normal. COLONOSCOPY: The terminal ileum was not examined. The visualized colonic mucosa was within normal limits without evidence of masses or ulcers. The quality of prep was good. There was mild sigmoid diverticulosis. No polyps were identified. Retroflexed examination showed small internal hemorrhoids. IMPRESSION: 1. Esquivel esophagus. 2. Negative screening colonoscopy. RECOMMENDATION: 1. Follow up as needed. 2. Repeat colonoscopy is recommended in 10 years for average risk individuals. MD TING Lancaster/WILFRED / [id number]
== END 2022-01-23 11:40 | disposition home or self-care (01) ==
PROVIDERS: PCP Internal Medicine; Visit Provider Internal Medicine Gastroenterology
PROC: (CPT 45378; principal; 2022-01-23 10:00)
DX: Z12.11 Encounter for screening for malignant neoplasm of colon (principal); K57.30 Diverticulosis of large intestine without perforation or abscess without bleeding; K64.8 Other hemorrhoids; K22.70 Barrett's esophagus without dysplasia; K21.9 Gastro-esophageal reflux disease without esophagitis; K44.9 Diaphragmatic hernia without obstruction or gangrene; I10 Essential (primary) hypertension; E78.00 Pure hypercholesterolemia, unspecified; G43.909 Migraine, unspecified, not intractable, without status migrainosus; F32.9 Major depressive disorder, single episode, unspecified; Z79.899 Other long term (current) drug therapy; Z88.8 Allergy status to other drugs, medicaments and biological substances; Z87.448 Personal history of other diseases of urinary system
CPT/HCPCS: 45378; 43239; 88305; 88342; J3010

== ENCOUNTER 2022-08-14 08:42 | Outpatient (RCR) | payer MEDICARE, SELFPAY | END 2022-09-11 14:01 | disposition home or self-care (01) | LOC: HO.PTCHIC 08:42 | PROVIDERS: PCP Internal Medicine; Visit Provider Internal Medicine | DX: M62.830 Muscle spasm of back (principal) | CPT/HCPCS: 97110; 97140; 97161 ==